=== PATIENT | male | born 1945 | race Caucasian/White ===

== ENCOUNTER 2024-11-21 11:22 | Inpatient (IN) | payer OTHER ==
[2024-11-21] VITALS (9 sets, daily range): BP systolic 135; BP diastolic 76; PULSE 72–140; RESP 16–20; TEMP 98.7; O2SAT 95–99
[~2024-11-21] VITALS: Ht 182.9 cm; Wt 60.6 kg
--- NOTE | 2024-11-21 11:31 | ED.PDOC ---
History of Present Illness HPI Comments 79-year-old male who comes in with chief complaint of constipation. The patient states that he has tried to have a bowel movement approximately 2-1/2 hours ago but then developed some constipation. The patient was also had no urine output. He is complaining of some pelvic pain. The patient states that he has not seen a doctor for several years. Upon arrival, the patient's blood pressure is 195/103. Time Seen by MD: 11:23 Reviewed Notes: Nurses Notes, Clinical Education Coordinator Notes, Medications, Allergies (No allergies to medications) Allergies: Coded Allergies: NO KNOWN ALLERGIES (Unverified , 11/21/24) Information Source: Patient, Emergency Med Personnel Mode of Arrival: EMS Severity: Moderate Timing: Hours Duration: Since onset Prehospital treatment: Rn Imcu Associated signs and symptoms Associated constipation with a pelvic pain Past Medical History PAST MEDICAL HISTORY: AFIB (Possible AFib), HTN Surgical History (Other): Cervical surgery Family History Family History: No family hx of Cancer, No family hx of DM, No family hx of Heart cameron Social History Smoker: Cigarettes Alcohol: Denies ETOH Use Drugs: Denies Drug Use Lives In: Home Constitutional: denies: chills, diaphoresis, fatigue, fever, malaise, sweats, weakness, others EENTM: denies: blurred vision, double vision, ear bleeding, ear discharge, ear drainage, ear pain, ear ringing, eye pain, eye redness, hearing loss, mouth pain, mouth swelling, nasal discharge, nose bleeding, nose congestion, nose pain, photophobia, tearing, throat pain, throat swelling, voice changes, others Respiratory: denies: cough, hemoptysis, orthopnea, SOB at rest, shortness of breath, SOB with excertion, stridor, wheezing, others Cardiovascular: denies: chest pain, dizzy spells, diaphoresis, Dyspnea on exertion, edema, irregular heart beat, left arm pain, lightheadedness, palpitations, PND, syncope, others Gastrointestinal: reports: constipated; denies: abdomen distended, abdominal pain, blood streaked bowels, diarrhea, dysphagia, difficulty swallowing, hematemesis, melena, nausea, poor appetite, poor fluid intake, rectal bleeding, rectal pain, vomiting, others Genitourinary: reports: others (Pelvic pain); denies: burning, dysuria, flank pain, frequency, hematuria, incontinence, penile discharge, penile sore, pain, testicle pain, testicle swelling, urgency Neurological: denies: dizziness, fainting, headache, left sided numbness, left sided weakness, numbness, paresthesia, pre-existing deficit, right sided numbness, right sided weakness, seizure, speech problems, tingling, tremors, weakness, others Musculoskeletal: denies: back pain, gout, joint pain, joint swelling, muscle pain, muscle stiffness, neck pain, others Integumetry: denies: bruises, change in color, change in hair/nails, dryness, laceration, lesions, lumps, rash, wounds, others Allergic/Immunocompromised: denies: Difficulty Healing, Frequent Infections, Hives, Itching, others Hematologic/Lymphatic: denies: anemia, blood clots, easy bleeding, easy bruising, swollen glands, others Endocrine: denies: excessive hunger, excessive sweating, excessive thirst, excessive urination, flushing, intolerance to cold, intolerance to heat, unexplained weight gain, unexplained weight loss, others Psychiatric: denies: anxiety, bipolar disorder, depression, hopeless, panic disorder, schizophrenia, sleepless, suicidal, others Physical Exam General Appearance: Moderate Distress HEENT: Pale Conjuntivae (L), Pale Conjuntivae (R), Pharynx Normal, TMs Normal Neck: Full Range of Motion, Non-Tender, Normal, Normal Inspection Respiratory: Chest Non-Tender, Lungs Clear, No Accessory Muscle Use, No Respiratory Distress, Normal Breath Sounds Cardiovascular: Irregular, No Edema, No JVD, No Murmur, No Gallop, Tachycardia Breast Exam: Deferred Gastrointestinal: Diffuse, No Organomegaly, Normal Bowel Sounds, Soft, Tenderness Genitalia: Deferred Pelvic: Deferred Rectal: Deferred Extremities: No calf tenderness, Normal capillary refill, Normal inspection, Normal range of motion, Non-tender, No pedal edema Musculoskeletal : Apperance: Normal Neurologic: Alert, operations support coordinator II-XII nml as Tested, No Motor Deficits, Normal Affect, Normal Mood, No Sensory Deficits Cerebellar Function: Normal Reflexes: Normal Skin: Dry, Normal Color, Warm Lymphatic: No Adenopathy Was a procedure done? Was a procedure done?: No EKG EKG : Pulse Rate (adult): 142 [place]: Normal Cardiac Rhythm: Afib Block: None ST: Nonsp Differential Dx Considerations may include: Constipation, bowel obstruction, diverticulitis generalized weakness X-Ray, Labs, Meds, VS Vital Signs Date Time Temp Pulse Resp B/P (MAP) Pulse Ox O2 Delivery O2 Flow Rate FiO2 11/21/24 14:00 92 16 93/40 (57) 99 11/21/24 13:54 83 16 98 Room Air* 0 21 11/21/24 13:00 98.4 89 16 133/86 (102) 99 98.4 11/21/24 12:39 89 11/21/24 12:34 158/98 11/21/24 12:22 140 16 95 Room Air* 0 21 11/21/24 12:21 98.1 140 16 195/103 (133) 94 98.1 11/21/24 11:51 142 11/21/24 11:49 142 11/21/24 11:28 97.3 130 16 195/103 (133) 94 Lab Test 11/21/24 11:53 Range/Units White Blood Count 16.4 H 4.4-10.8 10^3/uL Red Blood Count 5.56 4.5-5.90 10^6/uL Hemoglobin 17.2 13.5-17.5 g/dL Hematocrit 51.2 41.0-53.0 % Mean Corpuscular Volume 92.1 80.0-100.0 fL Mean Corpuscular Hemoglobin 30.9 28.0-32.0 pg Mean Corpuscular Hemoglobin Concent 33.6 32.0-36.0 g/dL Red Cell Distribution Width 14.1 11.8-14.3 % Platelet Count 199 140-450 10^3/uL Mean Platelet Volume 9.7 6.9-10.8 fL Neutrophils (%) (Auto) 92.5 H 37.0-80.0 % Lymphocytes (%) (Auto) 5.1 L 10.0-50.0 % Monocytes (%) (Auto) 2.0 0.0-12.0 % Eosinophils (%) (Auto) 0.2 0.0-7.0 % Basophils (%) (Auto) 0.2 0.0-2.0 % Neutrophils # (Auto) 15.1 H 1.6-8.6 10 ^3/uL Lymphocytes # (Auto) 0.8 0.4-5.4 10 ^3/uL Monocytes # (Auto) 0.3 0-1.3 10 ^3/uL Eosinophils # (Auto) 0 0-0.8 10 ^3/uL Basophils # (Auto) 0 0-0.2 10 ^3/uL Nucleated Red Blood Cells 0.2 % Sodium Level 141 136-145 mmol/L Potassium Level 4.5 3.5-5.1 mmol/L Chloride Level 106 98-107 mmol/L Carbon Dioxide Level 27 20-31 mmol/L Anion Gap 8 5-15 Blood Urea Nitrogen 25 H 9-23 mg/dL Creatinine 1.19 0.700-1.30 mg/dL Glomerular Filtration Rate Calc 62 >90 mL/min BUN/Creatinine Ratio 21.0 H 10.0-20.0 Serum Glucose 127 H 74-106 mg/dL Calcium Level 11.3 H 8.7-10.4 mg/dL Total Bilirubin 0.8 0.2-1.0 mg/dL Aspartate Amino Transferase (AST) 19 13-40 U/L Alanine Aminotransferase (ALT) 12 7-40 U/L Alkaline Phosphatase 92 46-116 U/L Total Protein 8.0 5.7-8.2 g/dL Albumin 5.1 H 3.2-4.8 g/dL Current Medications Medications (Trade) Dose Ordered Sig/Vanessa Route Start Time Stop Time Status Last Admin Clonidine HCl (Catapres Tablet) 0.2 mg ONCE ONCE PO 11/21/24 11:30 11/21/24 11:31 DC 11/21/24 12:34 Diltiazem HCl (Cardizem Injection) 15 mg ONCE ONCE IV 11/21/24 12:15 11/21/24 12:16 DC 11/21/24 12:34 IV Hep-Lock was established CT of the abdomen and pelvis shows: IMPRESSION: 1. No acute abdominal or pelvic findings. Mild irregular contour of the medial pole of the spleen, a mass is not entirely excluded. This could be further evaluated with MRI of the abdomen with contrast. Bilateral renal calculi and renal cysts. No hydronephrosis. Large amount of stool in the rectum suggesting fecal impaction. This is the CBC shows an elevated white blood cell count of 16.4 The patient was showing atrial fibrillation with a rapid response in the 140 so was given diltiazem at 15 mg IV push The patient was also extremely hypertensive and was given clonidine The patient's blood pressure has now dropped somewhat to 93/40. We are supporting it with fluid The patient was admitted to the hospitalist A cardiology consult will be obtained. The patient understands and agrees with the management Images Reviewed?: Images reviewed and evaluated by me Time of 1ST Reevaluation: 11:36 Reevaluation 1ST: Improved Patient Education/Counseling: Diagnosis, Treatment, Prognosis Family Education/Counseling: No Family Present Departure 1 Departure Time of Disposition: 16:17 Impression: Primary Impression: Atrial fibrillation with rapid ventricular response Additional Impressions: Fecal impaction Abdominal pain Qualified Codes: R10.84 - Generalized abdominal pain Disposition: 09 ADMITTED INPATIENT Admit to: Tele Condition: Fair Critical Care Note Critical Care Time?: Yes (35 min-critical care time only) Stability Stability form required: Yes Unstable for transfer: Telemetry monitoring (Telemetry monitoring required), ED Physician Assesment (Clinical assesment) Heart Score Heart Score: Heart Score Response (Comments) Value History N/A 0 EKG N/A 0 Age N/A 0 Risk Factors N/A 0 Troponin N/A 0 Total 0 JENNIFER MAE MD Nov 21, 2024 11:31
--- NOTE | 2024-11-21 12:03 | DVH ---
Exam: CT CT AB PEL WO CON-NO ORAL OR IV History: pain Comparison Study: None Technique: Multidetector spiral CT of the abdomen and pelvis was performed from lung bases to pubic symphysis. Imaging was performed without IV contrast. Axial, coronal and sagittal multiplanar reform ats were obtained from the axial data set by the technologist. Radiation dose : Abdomen/Pelvis: CTDIvol 7.75 mGy, DLP 396.83 mGy*cm. Findings: Evaluation of solid organs is limited due to lack of intravenous contrast use. Lung Bases: No acute or significant lung base finding. Normal heart size. No pleural or pericardial effusion. Liver: The liver is normal in size. No focal lesions. Gallbladder and biliary Tree: Unremarkable Spleen: Mild irregular contour of the medial pole of the spleen. Pancreas: The pancreas is grossly normal in appearance. Adrenal Glands: Unremarkable Kidneys: Right renal calculi measuring up to 5 mm. Punctate left renal calculi. Bilateral renal cyst s. No hydronephrosis. Bladder: Grossly unremarkable for degree of distention. Bowel: The stomach is grossly normal in appearance. Small bowel and colon are normal in caliber and d istribution. The appendix is not visualized; however, no secondary findings of acute appendicitis robbie ntified. Large amount of stool in the rectum. Ascites: Absent Lymphadenopathy: No mesenteric, retroperitoneal or periportal lymphadenopathy. Abdominal wall and Mesentery: Unremarkable. Vasculature: Calcified atherosclerotic disease. Pelvic Organs: Unremarkable Musculoskeletal: Grade 1 anterolisthesis of L4 on L5. Multilevel degenerative disease. IMPRESSION: 1. No acute abdominal or pelvic findings. Mild irregular contour of the medial pole of the spleen, a mass is not entirely excluded. This could be further evaluated with MRI of the abdomen with contrast. Bilateral renal calculi and renal cysts. No hydronephrosis. Large amount of stool in the rectum sugg esting fecal impaction. Radiation optimization: All CT scans at this facility use at least one of these dose optimization felipe hniques: Automated exposure control mA and/or kV adjustment per patient size (includes targeted exams where dose is matched to clinical indication) or iterative reconstruction. HS:Y
[2024-11-21 12:10] LABS: Basophils # (auto) 0 10 ^3/uL (0-0.2); Basophils % (auto) 0.2 % (0.0-2.0); Eosinophils # (auto) 0 10 ^3/uL (0-0.8); Eosinophils % (auto) 0.2 % (0.0-7.0); Hematocrit 51.2 % (41.0-53.0); Hemoglobin 17.2 g/dL (13.5-17.5); Lymphocytes # (auto) 0.8 10 ^3/uL (0.4-5.4); Lymphocytes % (auto) 5.1 % (10.0-50.0); Mean Corpuscular Hemoglobin 30.9 pg (28.0-32.0); Mean Corpuscular Hgb Conc. 33.6 g/dL (32.0-36.0); Mean Corpuscular Volume 92.1 fL (80.0-100.0); Monocytes # (auto) 0.3 10 ^3/uL (0-1.3); Neutrophils # (auto) 15.1 10 ^3/uL (1.6-8.6); Neutrophils % (auto) 92.5 % (37.0-80.0); Nucleated Red Blood Cells % 0.2 %; Platelet Count (auto) 199 10^3/uL (140-450); Red Blood Cells 5.56 10^6/uL (4.5-5.90); Red Cell Distribution Width 14.1 % (11.8-14.3); White Blood Cell 16.4 10^3/uL (4.4-10.8)
[2024-11-21] MEDS: dilTIAZem 25 MG/5 ML VIAL IV ONE (12:34)
[2024-11-21] MEDS: cloNIDine HCL 0.1 MG TAB PO ONE (12:34)
[2024-11-21 12:36] LABS: Alanine Aminotransferase 12 U/L (7-40); Albumin 5.1 g/dL (3.2-4.8); Alkaline Phosphatase 92 U/L (46-116); Anion Gap 8 (5-15); Aspartate Aminotransferase 19 U/L (13-40); Bilirubin, Total 0.8 mg/dL (0.2-1.0); Blood Urea Nitrogen 25 mg/dL (9-23); Calcium 11.3 mg/dL (8.7-10.4); Carbon Dioxide 27 mmol/L (20-31); Chloride 106 mmol/L (98-107); Glucose 127 mg/dL (74-106); Potassium 4.5 mmol/L (3.5-5.1); Sodium 141 mmol/L (136-145)
[2024-11-21] MEDS ORDERED: ACETAMINOPHEN 500 MG TAB or CAP PO PRN (15:45)
[2024-11-21] MEDS ORDERED: MORPHINE SULFATE INJ 2 MG/ml SYRG IV PRN ×2 (15:45)
[2024-11-21] MEDS ORDERED: NITROGLYCERIN 0.4 MG SL TAB SL PRN (15:45)
[2024-11-21] MEDS ORDERED: ONDANSETRON HCL 4 MG/2 ML VIAL IV PRN (15:45)
[2024-11-21] MEDS ORDERED: HYDROcodone-ACET 5/325MG TAB PO PRN (15:45)
[2024-11-21] MEDS ORDERED: IPRATROPIUM BROM 0.5 MG/2.5ML INH SOL NEB PRN (15:45)
[2024-11-21 15:59] LABS: Urine Bacteria None Seen /hpf (None Seen)
[2024-11-21 16:00] LABS: Urine Blood Negative /uL (Negative); Urine Clarity Clear (Clear); Urine Color Light-Yellow (Yellow); Urine Mucus FEW (None Seen); Urine Squamous Epithelial Cell FEW /hpf (<5); Urine Urobilinogen Normal (Negative); Urine WBC < 1 /HPF (0-3)
--- NOTE | 2024-11-21 16:07 | DVHHP2 ---
History of Present Illness Reason for Visit: Abdominal pain, constipation History of Present Illness Patient was a 79-year-old male presenting to the emergency room with constipation, be abdominal pain. Long discussion was made with the patient and daughter who was bedside. Apparently, the patient was not follow up with any t ype of medical provider which was estimated over six years. Patient has been losing weight. Upon arrival to the emergency room the patient was found to be in atrial fibrillation with rapid ventricular rate with a heart rate in the 150s. Patient was also severely hypertensive with a systolic blood pressure of 190. Patient was treated with clonidine as well as IV diltiazem with patient now in a controlled rate. Patient was not take any medications at this time. He denies having any other medical history other than hypertension. He denies having any previous surgeries. Social history includes smoking, one pack a day for over 50 years. Cardiovascular: HTN Past Surgical History: None Family History: None Smoke: 1 pack per day ALCOHOL: none Drugs: None Lives: with Family Review of Systems Constitutional: Yes: Other (Weight loss); No: Fever, Chills, Sweats, Weakness, Malaise Eyes: No: Pain, Vision change, Conjunctivae inflammation, Eyelid inflammation, Other, Redness ENT: No: Ear pain, Ear discharge, Nose pain, Nose discharge, Nose congestion, Mouth pain, Mouth swelling, Throat pain, Throat swelling, Other Respiratory: No: Cough, Dry, Shortness of breath, SOB with excertion, Wheezing, Hemoptysis, Pleuritic Pain, Sputum, Wheezing, Other Cardiovascular: No: Chest Pain, Palpitations, Orthopnea, Paroxysmal Noc. Dyspnea, Edema, Lt Headedness, Other Gastrointestinal: Abdominal Pain Genitourinary: No Dysuria, No Frequency, No Incontinence, No Hematuria, No Retention, No Other Musculoskeletal: No: other, neck pain, shoulder pain, arm pain, back pain, hand pain, leg pain, foot pain Skin: No: Rash, Lesions, Jaundice, Bruising, Other Neurological: No: Weakness, Numbness, Incoordination, Change in speech, Confusion, Seizures, Other Allergies: Coded Allergies: NO KNOWN ALLERGIES (Unverified , 11/21/24) Exam Vital Signs Vital Signs Date Time Temp Pulse Resp B/P (MAP) Pulse Ox O2 Delivery O2 Flow Rate FiO2 11/21/24 14:00 92 16 93/40 (57) 99 11/21/24 13:54 Room Air* 0 21 11/21/24 13:00 98.4 98.4 General Appearance: Alert, Oriented X3, Cooperative, Other (Generally unkept) HEENT: Atraumatic, PERRLA Respiratory: Clear to auscultation, Normal air movement Cardiovascular: Normal S1, Normal S2, Other (Atrial fibrillation/flutter) Abdominal: Normal bowel sounds, Soft, No tenderness, No hepatospenomegaly Neuro: Sensation intact, Cranial nerves 3-12 NL Psych/Mental Status: Mental status NL, Mood NL Labs/Xrays Labs Test 11/21/24 11:53 Range/Units White Blood Count 16.4 H 4.4-10.8 10^3/uL Red Blood Count 5.56 4.5-5.90 10^6/uL Hemoglobin 17.2 13.5-17.5 g/dL Hematocrit 51.2 41.0-53.0 % Mean Corpuscular Volume 92.1 80.0-100.0 fL Mean Corpuscular Hemoglobin 30.9 28.0-32.0 pg Mean Corpuscular Hemoglobin Concent 33.6 32.0-36.0 g/dL Red Cell Distribution Width 14.1 11.8-14.3 % Platelet Count 199 140-450 10^3/uL Mean Platelet Volume 9.7 6.9-10.8 fL Neutrophils (%) (Auto) 92.5 H 37.0-80.0 % Lymphocytes (%) (Auto) 5.1 L 10.0-50.0 % Monocytes (%) (Auto) 2.0 0.0-12.0 % Eosinophils (%) (Auto) 0.2 0.0-7.0 % Basophils (%) (Auto) 0.2 0.0-2.0 % Neutrophils # (Auto) 15.1 H 1.6-8.6 10 ^3/uL Lymphocytes # (Auto) 0.8 0.4-5.4 10 ^3/uL Monocytes # (Auto) 0.3 0-1.3 10 ^3/uL Eosinophils # (Auto) 0 0-0.8 10 ^3/uL Basophils # (Auto) 0 0-0.2 10 ^3/uL Nucleated Red Blood Cells 0.2 % Sodium Level 141 136-145 mmol/L Potassium Level 4.5 3.5-5.1 mmol/L Chloride Level 106 98-107 mmol/L Carbon Dioxide Level 27 20-31 mmol/L Anion Gap 8 5-15 Blood Urea Nitrogen 25 H 9-23 mg/dL Creatinine 1.19 0.700-1.30 mg/dL Glomerular Filtration Rate Calc 62 >90 mL/min BUN/Creatinine Ratio 21.0 H 10.0-20.0 Serum Glucose 127 H 74-106 mg/dL Calcium Level 11.3 H 8.7-10.4 mg/dL Total Bilirubin 0.8 0.2-1.0 mg/dL Aspartate Amino Transferase (AST) 19 13-40 U/L Alanine Aminotransferase (ALT) 12 7-40 U/L Alkaline Phosphatase 92 46-116 U/L Total Protein 8.0 5.7-8.2 g/dL Albumin 5.1 H 3.2-4.8 g/dL Assessment/Plan Assessment/Plan Impression: -obstipation -leukocytosis, rule out sepsis -atrial fibrillation with rapid ventricular rate -cachexia -nicotine dependence Plan: -admit to telemetry unit -echocardiogram -rate control with beta-blockers -bronchodilators. -chest x-ray -repeat labs in a.m. Total time spent with patient discussing and formulating plan of care: 35 minutes. This medical document was created using an electronic medical record system with [employer] dictation system. Although this document has been carefully reviewed, there may still be some phonetic and typographical errors. These areas are purely typographical due to imperfections of the software programs, and do not reflect any compromise in the patient's medical care. Plan discussed with: Patient, Daughter, Other (RN) My Orders Orders - FRANCIA BROWN RESIDENTIAL NURSE Procedure Category Date Status Time Admit ADMIT 11/21/24 Verified 15:40 Nitroglycerin [facility] 11/21/24 Verified Sublingual (Ntrostat 15:45 Morphine Sulfate PH[facility] 11/21/24 Verified Injection 15:45 Stat Ekg For Chest [facility] 11/21/24 Verified Pain 15:40 Notify Md Of Changes [facility] 11/21/24 Verified From Base 15:40 Information Resources Director For [facility] 11/21/24 Verified 24 Hours 15:40 Emergency Dysrhythmia [facility] 11/21/24 Verified Protocol 15:40 Rhythm Strips Once [facility] 11/21/24 Verified Every Shift 15:40 Oxygen By Nasal RT 11/21/24 Verified Cannula 15:40 Echo 2d Mode Cardiac US 11/21/24 Verified DOP 15:40 Lactulose Oral PHA 11/21/24 Verified 15:45 Docusate Sodium PHA 11/21/24 Verified Capsule (Colace 22:00 Metoprolol Tartrate PHA 11/21/24 Verified Tablet (Lopressor Ta 22:00 Enoxaparin Sodium PHA 11/22/24 Verified (Lovenox) 10:00 Chest Xray 1 View XY 11/21/24 Verified 15:40 Morphine Sulfate PHA 11/21/24 Verified Injection 15:45 Hydrocodone-Acet PHA 11/21/24 Verified 5/325mg Tab ([place] 15:45 Acetaminophen Tablet PHA 11/21/24 Verified (Tylenol Tablet) 15:45 Ondansetron Hcl PHA 11/21/24 Verified (Zofran) 15:45 Ipratropium Medneb PHA 11/21/24 Verified (Atrovent Medneb) 15:45 Levalbuterol Hcl PHA 11/21/24 Verified (Xopenex Medneb) 18:00 Lactulose Oral PHA 11/21/24 Verified 15:45 Cardiac DIET 11/21/24 Verified Diet-2gna,Lofat,Lochol Dinner Carcinoembryonic LAB 11/21/24 Verified Antigen 15:40 Date of Service: Nov 21, 2024 Billing Provider: FRANCIA BROWN NP Common Visit Codes: [id number] INP/OBS CARE (HIGH) FRANCIA BROWN NP Nov 21, 2024 16:06
--- NOTE | 2024-11-21 16:17 | DVH ---
CHEST RADIOGRAPH Indication: Hx of smoking, cardiac disease Technique: Single frontal view of the chest was obtained Comparison: None FINDINGS: Lines and Tubes: None Lungs: Left lateral mid lung zone emesis. Pleura: No effusion. No pneumothorax. Cardiomediastinal contours: Unremarkable Bones: No acute osseous abnormality. IMPRESSION: Left lateral mid lung zone atelectasis. Otherwise no evidence for acute cardiopulmonary disease.
[2024-11-21] MEDS: LACTULOSE 20Gm/30ML SOLN PO ONE (17:09)
[2024-11-21] MEDS: LEVALBUTEROL HCL 1.25 MG/3 ML NEB NEB SCH (18:06)
[2024-11-21] MEDS ORDERED: LEVALBUTEROL HCL 1.25 MG/3 ML NEB NEB PRN (22:15)
[2024-11-21] MEDS: METOPROLOL TARTRATE 25 MG TAB PO SCH (23:25)
[2024-11-21] MEDS: DOCUSATE SOD 100 MG CAP PO SCH (23:25)
[2024-11-22] VITALS (12 sets, daily range): BP systolic 102–131; BP diastolic 66–80; PULSE 71–115; RESP 16–20; TEMP 97.6–98.8; O2SAT 96–99
[2024-11-22] MEDS: LACTULOSE 20Gm/30ML SOLN PO PRN (02:50)
[2024-11-22] MEDS: ENOXAPARIN SOD 40 MG/0.4 ML SYRINGE SC SCH (09:09)
--- NOTE | 2024-11-22 14:06 | DVHPN2 ---
Reviewed: Care Plan, H&P, Labs, Medications, Previous Orders, Radiology Changes from previous H/P or p: No Changes Eyes: No Pain, No Vision change, No Conjunctivae inflammation, No Eyelid inflammation, No Other, No Redness ENT: No Ear pain, No Ear discharge, No Nose pain, No Nose discharge, No Nose congestion, No Mouth pain, No Mouth swelling, No Throat pain, No Throat swelling, No Other Cardiovascular: No Chest Pain, No Palpitations, No Orthopnea, No Paroxysmal Noc. Dyspnea, No Edema, No Lt Headedness, No Other Respiratory: No Cough, No Dry, No Shortness of breath, No SOB with excertion, No Wheezing, No Hemoptysis, No Pleuritic Pain, No Sputum, No Other Gastrointestinal: Abdominal Pain Genitourinary: No Dysuria, No Frequency, No Incontinence, No Hematuria, No Retention, No Other Musculoskeletal: No other, No neck pain, No shoulder pain, No arm pain, No back pain, No hand pain, No leg pain, No foot pain Skin: No Rash, No Lesions, No Jaundice, No Bruising, No Other Objective Vitals Vital Signs Date Time Temp Pulse Resp B/P (MAP) Pulse Ox O2 Delivery O2 Flow Rate FiO2 11/22/24 12:47 98.1 79 16 114/68 (83) 97 98.1 11/22/24 10:00 Room Air 0.0 11/22/24 10:00 21 Intake/Output Intake and Output 11/22/24 07:00 Intake Total 250 ml Output Total 500 ml Balance -250 ml Intake Oral 250 ml Output Urine Total 500 ml # Bowel Movements 1 Medications Current Medications Medications Dose Ordered Sig/Vanessa Route Start Time Stop Time Status Last Admin Dose Admin Nitroglycerin 0.4 mg Q5MINP PRN SL 11/21/24 15:45 Morphine Sulfate 2 mg Q30M PRN IV 11/21/24 15:45 Docusate Sodium 100 mg BID PO 11/21/24 22:00 11/22/24 09:08 100 MG Metoprolol Tartrate 12.5 mg BID PO 11/21/24 22:00 11/22/24 09:09 12.5 MG Enoxaparin Sodium 40 mg DAILY SC 11/22/24 10:00 11/22/24 09:09 40 MG Morphine Sulfate 1 mg Q4HPRN PRN IV 11/21/24 15:45 Acetaminophen/ Hydrocodone Bitart 1 tab Q6HPRN PRN PO 11/21/24 15:45 Acetaminophen 500 mg Q8HP PRN PO 11/21/24 15:45 Ondansetron HCl 4 mg Q6HP PRN IV 11/21/24 15:45 Ipratropium [place] 0.5 mg Q4HPRN PRN NEB 11/21/24 15:45 Lactulose 30 ml Q6HPRN PRN PO 11/21/24 15:45 11/22/24 10:41 30 ML Levalbuterol HCl 0.625 mg Q4HPRN PRN NEB 11/21/24 22:15 Laboratory Results Laboratory Tests 11/21/24 11:53 Urinalysis Test 11/21/24 15:45 Urine Color Light-yellow (Yellow) Urine Clarity Clear (Clear) Urine pH 5.0 (5.0-9.0) Urine Specific [place] 1.030 (1.001-1.035) Urine Protein +1 (Negative) Urine Ketones +1 (Negative) Urine Blood Negative /uL (Negative) Urine Nitrite Negative (Negative) Urine Bilirubin Negative (Negative) Urine Urobilinogen Normal mg/dL (Negative) Urine Leukocyte Esterase Negative /uL (Negative) Urine RBC 7 /hpf (0 - 3) Urine Microscopic WBC < 1 /HPF (0-3) Urine Squamous Epithelial Cells Few /hpf (<5) Urine Bacteria None seen /hpf (None Seen) Urine Mucus Few (None Seen) Urine Glucose Normal mg/dL (Normal) Assessment/Plan Assessment/Plan -obstipation -leukocytosis, rule out sepsis -atrial fibrillation with rapid ventricular rate -cachexia -nicotine dependence Plan: -continuing current management Continuing with beta madie Waiting for asphalt tamper to see the patient. Waiting for echo Continuing metoprolol, lisinopril and spironolactone. Continuing with lactulose This medical document was created using an electronic medical record system with [employer] direct computerized dictation system. Although this document has been carefully reviewed, there may still be some phonetic and typographical errors. These areas are purely typographical due to imperfections of the software programs, and do not reflect any compromise in the patient's medical care. Plan discussed with: Patient Date of Service: Nov 22, 2024 Billing Provider: KLEBER HILL MD Common Visit Codes: [id number] INP/OBS CARE(HIGH) KLEBER HILL MD Nov 22, 2024 14:06
--- NOTE | 2024-11-22 16:26 | DVHSR ---
APPROVED REPORT EXAM: Two-dimensional and M-mode echocardiogram with Doppler and color Doppler. Blood Pressure: 120/72 mmHg INDICATION Atrial Fibrillation RISK FACTORS Height: 6'0", Weight: 133 DIMENSIONS LVDd4.4 (3.8-5.7cm)LA (2D)3.4 (1.9-4.0cm)Aortic Root3.0 (2.0-3.7cm) LVDs3.5 (2.5-4.0cm)LA (MM) (1.9-4.0cm)Aortic Cusp Exc1.7 (1.5-2.0cm) EF (%) 40.0 (55-70%)Rt. Atrium (1.9-4.0cm)Asc. Aorta cm IVSd1.1 (0.7-1.1cm)RV (D) (1.8-2.4cm) PWd1.0 (0.7-1.1cm) Mitral Valve MitralMitral Stenosis E wave1.06m/sMV Mean GR.mmHg E/A ratio0.02D MVAcm2 Aortic Valve Aortic ValveAortic Stenosis V10.59m/Richar Mean GR.2mmHg V21.04m/[place] Peak GR.4mmHg LVOT Diameter1.9 (1.8-2.4cm)Doppler AVA1.61cm2 Tricuspid Valve TR Velocity2.51m/s [id number] Other Information Quality : Technically LimitedRhythm : Technically limited study due to body habitus, patient sitting up. Conclusion Technically good study. Undetermined rhythm. Left atrial enlargement. Moderate mitral annular calcification. No significant impingement of leaflet motion. Left ventricular function is diminished. EF is about 40% with global hypokinesis. Dopplers unremarkable. No pericardial effusion masses or vegetations.
--- NOTE | 2024-11-22 18:20 | ECG ---
[facility] Test Date: 2024-11-21 Test Time: 12:39:09 Pat Name: GARY LOPEZ Department: er Room: 0286T Gender: M Igniter Assembler: MARIE : 1945 Requested By: JENNIFER MAE Order Number: [id number] Reading MD: Nick De Leon Measurements Intervals [place] Rate: 89 P: 0 [place]: 0 QRS: 103 QRSD: 111 T: 16 QT: 362 QTc: 441 Interpretive Statements Atrial fibrillation Right axis deviation Electronically Signed On 11-23-2024 18:43:58 PST by Nick De Leon Please click the below link to view image of tracing.
[2024-11-23] VITALS (11 sets, daily range): BP systolic 99–151; BP diastolic 59–93; PULSE 67–134; RESP 18–20; TEMP 97.8–99; O2SAT 91–99
--- NOTE | 2024-11-23 22:29 | DVHPN2 ---
Subjective The patient is seen and examined at bedside. Sleepy today. Still complaint of constipation. Reviewed: Care Plan, H&P, Labs, Medications, Previous Orders, Radiology Changes from previous H/P or p: No Changes Eyes: No Pain, No Vision change, No Conjunctivae inflammation, No Eyelid inflammation, No Other, No Redness ENT: No Ear pain, No Ear discharge, No Nose pain, No Nose discharge, No Nose congestion, No Mouth pain, No Mouth swelling, No Throat pain, No Throat swelling, No Other Cardiovascular: No Chest Pain, No Palpitations, No Orthopnea, No Paroxysmal Noc. Dyspnea, No Edema, No Lt Headedness, No Other Respiratory: No Cough, No Dry, No Shortness of breath, No SOB with excertion, No Wheezing, No Hemoptysis, No Pleuritic Pain, No Sputum, No Other Gastrointestinal: Abdominal Pain Genitourinary: No Dysuria, No Frequency, No Incontinence, No Hematuria, No Retention, No Other Musculoskeletal: No other, No neck pain, No shoulder pain, No arm pain, No back pain, No hand pain, No leg pain, No foot pain Skin: No Rash, No Lesions, No Jaundice, No Bruising, No Other Objective Vitals Vital Signs Date Time Temp Pulse Resp B/P (MAP) Pulse Ox O2 Delivery O2 Flow Rate FiO2 11/23/24 21:17 97.8 93 18 99/59 (72) 96 97.8 11/23/24 20:03 Room Air 0.0 11/23/24 20:03 21 Intake/Output Intake and Output 11/23/24 07:00 Intake Total 990 ml Output Total 410 ml Balance 580 ml Intake Oral 990 ml Output Urine Total 410 ml # Bowel Movements 3 General Appearance: Alert, Cooperative, No acute distress HEENT: Atraumatic, PERRLA, EOMI, Mucous membr. moist/pink Neck: Supple Lungs: Clear to auscultation, Normal air movement Cardiovascular: Regular rate, Normal S1, Normal S2, No murmurs, Gallops, Rubs Abdomen: Normal bowel sounds, Soft, No tenderness Neuro: Cranial nerves 3-12 NL Psych/Mental Status: Mental status NL Medications Current Medications Medications Dose Ordered Sig/Vanessa Route Start Time Stop Time Status Last Admin Dose Admin Nitroglycerin 0.4 mg Q5MINP PRN SL 11/21/24 15:45 Morphine Sulfate 2 mg Q30M PRN IV 11/21/24 15:45 Docusate Sodium 100 mg BID PO 11/21/24 22:00 11/23/24 10:06 100 MG Metoprolol Tartrate 12.5 mg BID PO 11/21/24 22:00 11/23/24 15:36 12.5 MG Enoxaparin Sodium 40 mg DAILY SC 11/22/24 10:00 11/23/24 10:07 40 MG Morphine Sulfate 1 mg Q4HPRN PRN IV 11/21/24 15:45 Acetaminophen/ Hydrocodone Bitart 1 tab Q6HPRN PRN PO 11/21/24 15:45 Acetaminophen 500 mg Q8HP PRN PO 11/21/24 15:45 Ondansetron HCl 4 mg Q6HP PRN IV 11/21/24 15:[address] [place] 0.5 mg Q4HPRN PRN NEB 11/21/24 15:45 Lactulose 30 ml Q6HPRN PRN PO 11/21/24 15:45 11/22/24 10:41 30 ML Levalbuterol HCl 0.625 mg Q4HPRN PRN NEB 11/21/24 22:15 Laboratory Results Laboratory Tests 11/21/24 11:53 Urinalysis Test 11/21/24 15:45 Urine Color Light-yellow (Yellow) Urine Clarity Clear (Clear) Urine pH 5.0 (5.0-9.0) Urine Specific [place] 1.030 (1.001-1.035) Urine Protein +1 (Negative) Urine Ketones +1 (Negative) Urine Blood Negative /uL (Negative) Urine Nitrite Negative (Negative) Urine Bilirubin Negative (Negative) Urine Urobilinogen Normal mg/dL (Negative) Urine Leukocyte Esterase Negative /uL (Negative) Urine RBC 7 /hpf (0 - 3) Urine Microscopic WBC < 1 /HPF (0-3) Urine Squamous Epithelial Cells Few /hpf (<5) Urine Bacteria None seen /hpf (None Seen) Urine Mucus Few (None Seen) Urine Glucose Normal mg/dL (Normal) Labs and/or images reviewed: Labs reviewed by me Assessment/Plan Assessment/Plan -obstipation -leukocytosis, rule out sepsis -atrial fibrillation with rapid ventricular rate -cachexia -nicotine dependence Plan: -continuing current management Continuing with beta madie Waiting for application support intern to see the patient. Waiting for echo Continuing metoprolol, lisinopril and spironolactone. Continuing with lactulose. Encouraged the patient to decrease pain medication and increase fiber food for prevent constipation and obstipation. This medical document was created using an electronic medical record system with [employer] computerized dictation system. Although this document has been carefully reviewed, there may still be some phonetic and typographical errors. These areas are purely typographical due to imperfections of the software programs, and do not reflect any compromise in the patient's medical care. Plan discussed with: Patient Date of Service: Nov 23, 2024 Billing Provider: KLEBER HILL MD Common Visit Codes: [id number] INP/OBS CARE(HIGH) KLEBER HILL MD Nov 23, 2024 22:29
[2024-11-24] VITALS (12 sets, daily range): BP systolic 95–134; BP diastolic 35–76; PULSE 62–103; RESP 16–18; TEMP 97.5–98.5; O2SAT 96–99
--- NOTE | 2024-11-24 14:35 | DVHPN2 ---
Subjective Patient denies any symptoms at this time. Reviewed: Care Plan, H&P, Labs, Medications Changes from previous H/P or p: No Changes Eyes: No Pain, No Vision change, No Conjunctivae inflammation, No Eyelid inflammation, No Other, No Redness ENT: No Ear pain, No Ear discharge, No Nose pain, No Nose discharge, No Nose congestion, No Mouth pain, No Mouth swelling, No Throat pain, No Throat swelling, No Other Cardiovascular: No Chest Pain, No Palpitations, No Orthopnea, No Paroxysmal Noc. Dyspnea, No Edema, No Lt Headedness, No Other Respiratory: No Cough, No Dry, No Shortness of breath, No SOB with excertion, No Wheezing, No Hemoptysis, No Pleuritic Pain, No Sputum, No Other Gastrointestinal: Abdominal Pain Genitourinary: No Dysuria, No Frequency, No Incontinence, No Hematuria, No Retention, No Other Musculoskeletal: No other, No neck pain, No shoulder pain, No arm pain, No back pain, No hand pain, No leg pain, No foot pain Skin: No Rash, No Lesions, No Jaundice, No Bruising, No Other Objective Vitals Vital Signs Date Time Temp Pulse Resp B/P (MAP) Pulse Ox O2 Delivery O2 Flow Rate FiO2 11/24/24 10:32 62 18 134/76 99 0.0 11/24/24 09:00 98.5 98.5 11/24/24 08:15 Room Air* 21 Intake/Output Intake and Output 11/24/24 07:00 Intake Total 1590 ml Output Total 2050 ml Balance -460 ml Intake Oral 1590 ml Output Urine Total 2050 ml # Bowel Movements 2 General Appearance: Alert, Oriented X3, Cooperative, No acute distress HEENT: Atraumatic, PERRLA Lungs: Clear to auscultation, Normal air movement Cardiovascular: Normal S1, Normal S2, Other (Atrial fibrillation) Abdomen: Normal bowel sounds, Soft, No tenderness, No hepatospenomegaly Back: Midline Tenderness Musculoskeletal: Normal sensory function, Normal motor function Extremities: No clubbing, No cyanosis Neuro: Normal gait, Normal speech Skin: Dry, Intact Psych/Mental Status: Mental status NL, Mood NL Medications Current Medications Medications Dose Ordered Sig/Vanessa Route Start Time Stop Time Status Last Admin Dose Admin Nitroglycerin 0.4 mg Q5MINP PRN SL 11/21/24 15:45 Morphine Sulfate 2 mg Q30M PRN IV 11/21/24 15:45 Docusate Sodium 100 mg BID PO 11/21/24 22:00 11/24/24 10:00 100 MG Metoprolol Tartrate 12.5 mg BID PO 11/21/24 22:00 11/24/24 10:03 12.5 MG Enoxaparin Sodium 40 mg DAILY SC 11/22/24 10:00 11/24/24 10:01 40 MG Morphine Sulfate 1 mg Q4HPRN PRN IV 11/21/24 15:45 Acetaminophen/ Hydrocodone Bitart 1 tab Q6HPRN PRN PO 11/21/24 15:45 Acetaminophen 500 mg Q8HP PRN PO 11/21/24 15:45 Ondansetron HCl 4 mg Q6HP PRN IV 11/21/24 15:45 Ipratropium [place] 0.5 mg Q4HPRN PRN NEB 11/21/24 15:45 Lactulose 30 ml Q6HPRN PRN PO 11/21/24 15:45 11/22/24 10:41 30 ML Levalbuterol HCl 0.625 mg Q4HPRN PRN NEB 11/21/24 22:15 Laboratory Results Laboratory Tests 11/21/24 11:53 Urinalysis Test 11/21/24 15:45 Urine Color Light-yellow (Yellow) Urine Clarity Clear (Clear) Urine pH 5.0 (5.0-9.0) Urine Specific [place] 1.030 (1.001-1.035) Urine Protein +1 (Negative) Urine Ketones +1 (Negative) Urine Blood Negative /uL (Negative) Urine Nitrite Negative (Negative) Urine Bilirubin Negative (Negative) Urine Urobilinogen Normal mg/dL (Negative) Urine Leukocyte Esterase Negative /uL (Negative) Urine RBC 7 /hpf (0 - 3) Urine Microscopic WBC < 1 /HPF (0-3) Urine Squamous Epithelial Cells Few /hpf (<5) Urine Bacteria None seen /hpf (None Seen) Urine Mucus Few (None Seen) Urine Glucose Normal mg/dL (Normal) Labs and/or images reviewed: Labs reviewed by me, Image(s) reviewed by me Assessment/Plan Assessment/Plan Impression: -obstipation -leukocytosis, rule out sepsis -atrial fibrillation with rapid ventricular rate -cachexia -nicotine dependence Plan: -no events overnight. AFib now controlled. Hematuria noted -renal ultrasound, check PSA -echocardiogram: EF depressive 40% -cardiology consultation -rate control with beta-blockers -bronchodilators. -chest x-ray -repeat labs Total time spent with patient discussing and formulating plan of care: 35 minutes. This medical document was created using an electronic medical record system with [email or web address] dictation system. Although this document has been carefully reviewed, there may still be some phonetic and typographical errors. These areas are purely typographical due to imperfections of the software programs, and do not reflect any compromise in the patient's medical care. Plan discussed with: Patient, Other (RN) My Orders Orders - FRANCIA BROWN NP Procedure Category Date Status Time *Tele Psych Consult CONS 11/24/24 Transmitted 13:28 Comprehensive LAB 11/24/24 Logged Metabolic Panel 13:28 * Cardiology Consult CONS 11/24/24 Transmitted 13:47 * Wound Consult CONS 11/24/24 Verified Kidney US 11/24/24 Verified 14:30 Complete Blood Count LAB 11/24/24 Verified 14:30 Psa Total+% Free LAB 11/24/24 Verified 14:30 Erythrocyte LAB 11/24/24 Verified Sedimentation Rate 14:30 C-Reactive Protein LAB 11/24/24 Verified 14:30 Date of Service: Nov 24, 2024 Billing Provider: FRANCIA BROWN NP Common Visit Codes: [id number] INP/OBS CARE(HIGH) FRANCIA BROWN NP Nov 24, 2024 14:35
--- NOTE | 2024-11-24 15:12 | DVH ---
INDICATION: hematuria TECHNIQUE: Multiple real-time sonographic images of the kidneys and bladder were obtained. COMPARISON: None FINDINGS: The right kidney measures 10.2 cm in length, which is normal in size. There is normal echog enicity of the right kidney. No hydronephrosis. 2.8 x 2.9 x 2.6 cm anechoic lesion right kidney. Most likely cortical cysts The left kidney measures 11 cm in length, which is normal in size. There is normal echogenicity of th e left kidney. No hydronephrosis. Bladder contains a Wheeler catheter in the bladder is emptying. IMPRESSION: 1. Normal sonographic appearance of the kidneys. No hydronephrosis. 2. Left kidney not well seen due to bowel gas. 3. Right kidney measures 10.2 cm. Left kidney measures 11 cm. 4. 2.8 x 2.9 x 2.6 cm right renal cyst 5. Questionable nonobstructing calculi left kidney.
[2024-11-24 15:36] LABS: Basophils # (auto) 0.1 10 ^3/uL (0-0.2); Basophils % (auto) 0.4 % (0.0-2.0); Eosinophils # (auto) 0.4 10 ^3/uL (0-0.8); Eosinophils % (auto) 3.3 % (0.0-7.0); Hematocrit 46.1 % (41.0-53.0); Hemoglobin 15.6 g/dL (13.5-17.5); Lymphocytes # (auto) 1.4 10 ^3/uL (0.4-5.4); Lymphocytes % (auto) 10.4 % (10.0-50.0); Mean Corpuscular Hemoglobin 31.1 pg (28.0-32.0); Mean Corpuscular Hgb Conc. 33.9 g/dL (32.0-36.0); Mean Corpuscular Volume 91.9 fL (80.0-100.0); Monocytes # (auto) 1.1 10 ^3/uL (0-1.3); Monocytes % (auto) 7.9 % (0.0-12.0); Neutrophils # (auto) 10.4 10 ^3/uL (1.6-8.6); Nucleated Red Blood Cells % 0.1 %; Platelet Count (auto) 168 10^3/uL (140-450); Red Blood Cells 5.02 10^6/uL (4.5-5.90); Red Cell Distribution Width 14.2 % (11.8-14.3); White Blood Cell 13.3 10^3/uL (4.4-10.8)
[2024-11-24 15:49] LABS: Alanine Aminotransferase 11 U/L (7-40); Alkaline Phosphatase 77 U/L (46-116); Anion Gap 7 (5-15); Aspartate Aminotransferase 13 U/L (13-40); BUN/Creatinine Ratio 20.2 (10.0-20.0); Blood Urea Nitrogen 18 mg/dL (9-23); Calcium 10.5 mg/dL (8.7-10.4); Carbon Dioxide 29 mmol/L (20-31); Chloride 101 mmol/L (98-107); Glucose 105 mg/dL (74-106); Potassium 4.4 mmol/L (3.5-5.1); Sodium 137 mmol/L (136-145); Total Protein 6.8 g/dL (5.7-8.2)
[2024-11-24 15:50] LABS: Albumin 4.3 g/dL (3.2-4.8)
--- NOTE | 2024-11-24 16:26 | DVHINCON2 ---
[facility] JO[facility]PH [facility] 11/24/24 1626: Date Seen: Nov 24, 2024 Referring Physician MARIE Wilkerson Reason for Consultation New onset atrial fibrillation, systolic HF History of Present Illness This is a 79-year-old man who presented to the emergency room via EMS with a chief complaint of constipation. The patient initial complaint was constipation associated with anuria. He also endorses intermittent episodes of SOB, ZHENG, and dizziness for the past two years. Denies chest pain, palpitations, diaphoresis, or syncopal events. SBP upon arrival was found in the 190s mmHg. States he takes three unknown pills on daily basis at home and stopping one of them given side effects. He last saw a PCP >3 years ago. He underwent a 12 lead electrocardiogram revealing an atrial fibrillation rhythm in the 140s bpm. Now at a controlled rate. Significant medical history includes hypertension, hypoglycemia, and a smoking history of 30.5 pack-years. Past Medical History Past medical history reviewed. No other significant than mentioned above. Past Surgical History Denies any past surgical history. Family History: Depression G8 MOTHER FH: heart attack G8 MOTHER Family History Family history reviewed. Not significant for cardiovascular disease. Social History Denies the use of illicit drugs or alcohol. Current tobacco use including a smoking history of 30.5 pack-years. Allergies: Coded Allergies: NO KNOWN ALLERGIES (Unverified , 11/21/24) Home Meds Unknown home medications. Review of Systems Constitutional: No symptom reported Ears, Nose, & Throat: No symptom reported Eyes: No symptom reported Neurological: No symptoms reported Pulmonary/Respiratory: No symptom reported Cardiovascular: No symptom reported Gastrointestinal: Constipation Genitourinary: Anuria Musculoskeletal: No symptom reported Skin: No symptom reported Psychiatric: No symptom reported Endocrine: No symptom reported Hemotologic/Lymphatic: No symptom reported Vital Signs Vital Signs Date Time Temp Pulse Resp B/P (MAP) Pulse Ox O2 Delivery O2 Flow Rate FiO2 11/24/24 13:00 98.1 68 16 111/61 (78) 96 98.1 11/24/24 10:32 0.0 11/24/24 08:15 Room Air* 21 Physical Exam General Appearance: Cooperative. Unkept. Cachetic. In no acute distress Head Exam: Normal inspection Neck Exam: Normal inspection. Non-tender. Normal alignment Pulmonary/Respiratory: Chest non-tender. Clear bilateral breath sounds Cardiovascular/Chest: Irregularly irregular rate and rhythm. A-fib controlled rate. No murmurs. No JVD. Peripheral Pulses: 2+ Radial (R). 2+ Radial (L). 2+ Pedal (R). 2+ Pedal (L) Abdominal Exam: Normal bowel sounds. Soft. Nontender. No hepatospenomegaly. No masses Ankle Exam: Negative ankle edema Lower extremities: Negative lower extremity edema Neuro/Mental Status: A&O x3. Coherent Thoughts/Psych: Normal thought pattern. Appropriate mood and affect. Appearance: In no acute distress Skin Exam: Dryness to BLEs Labs/Diagnostic Data Labs Test 11/24/24 15:00 11/21/24 15:45 11/21/24 11:53 Range/Units White Blood Count 13.3 H 4.4-10.8 10^3/uL Red Blood Count 5.02 4.5-5.90 10^6/uL Hemoglobin 15.6 13.5-17.5 g/dL Hematocrit 46.1 41.0-53.0 % Mean Corpuscular Volume 91.9 80.0-100.0 fL Mean Corpuscular Hemoglobin 31.1 28.0-32.0 pg Mean Corpuscular Hemoglobin Concent 33.9 32.0-36.0 g/dL Red Cell Distribution Width 14.2 11.8-14.3 % Platelet Count 168 140-450 10^3/uL Mean Platelet Volume 10.3 6.9-10.8 fL Neutrophils (%) (Auto) 78.0 37.0-80.0 % Lymphocytes (%) (Auto) 10.4 10.0-50.0 % Monocytes (%) (Auto) 7.9 0.0-12.0 % Eosinophils (%) (Auto) 3.3 0.0-7.0 % Basophils (%) (Auto) 0.4 0.0-2.0 % Neutrophils # (Auto) 10.4 H 1.6-8.6 10 ^3/uL Lymphocytes # (Auto) 1.4 0.4-5.4 10 ^3/uL Monocytes # (Auto) 1.1 0-1.3 10 ^3/uL Eosinophils # (Auto) 0.4 0-0.8 10 ^3/uL Basophils # (Auto) 0.1 0-0.2 10 ^3/uL Nucleated Red Blood Cells 0.1 % Sodium Level 137 136-145 mmol/L Potassium Level 4.4 3.5-5.1 mmol/L Chloride Level 101 98-107 mmol/L Carbon Dioxide Level 29 20-31 mmol/L Anion Gap 7 5-15 Blood Urea Nitrogen 18 9-23 mg/dL Creatinine 0.89 0.700-1.30 mg/dL Glomerular Filtration Rate Calc 87 >90 mL/min BUN/Creatinine Ratio 20.2 H 10.0-20.0 Serum Glucose 105 74-106 mg/dL Calcium Level 10.5 H 8.7-10.4 mg/dL Total Bilirubin 1.0 0.2-1.0 mg/dL Aspartate Amino Transferase (AST) 13 13-40 U/L Alanine Aminotransferase (ALT) 11 7-40 U/L Alkaline Phosphatase 77 46-116 U/L C-Reactive Protein High Sensitivity 0.42 <1.0 mg/dL Total Protein 6.8 5.7-8.2 g/dL Albumin 4.3 3.2-4.8 g/dL Urine Color Light-yellow Yellow Urine Clarity Clear Clear Urine pH 5.0 5.0-9.0 Urine Specific [place] 1.030 1.001-1.035 Urine Protein +1 Negative Urine Ketones +1 Negative Urine Blood Negative Negative /uL Urine Nitrite Negative Negative Urine Bilirubin Negative Negative Urine Urobilinogen Normal Negative mg/dL Urine Leukocyte Esterase Negative Negative /uL Urine RBC 7 0 - 3 /hpf Urine Microscopic WBC < 1 0-3 /HPF Urine Squamous Epithelial Cells Few <5 /hpf Urine Bacteria None seen None Seen /hpf Urine Mucus Few None Seen Urine Glucose Normal Normal mg/dL Carcinoembryonic Antigen 3.13 <=5.0 ng/mL Assessment Atrial fibrillation with rapid ventricular rate, now rate controlled, 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 Jameson) * Transthoracic echocardiogram revealed an EF of 40% * Initiate GDMT for HFmrEF. Uptitrate as tolerated * Rate control, continue metoprolol therapy * Initiate therapeutic Lovenox. Transition to NOAC when appropriate * NDE2BO2-UACo Score 4 points. HAS-BLED Score 2 points * Hold antiarrhythmic therapy * Monitor ECG changes and notify * TSH, BNP, Mg, lipid panel, HgbA1C pending Thank you for allowing us to participate in this patient's care. Please call if you have any questions or concerns. This medical document was created using an electronic medical record system with voice recognition software and computerized dictation system. Although this document has been carefully reviewed, there might still be some phonetic and typographical errors. Occasional wrong-word or ``sound-alike substitutions may have occurred due to the inherent limitations of voice recognition software. These areas are purely typographical due to imperfections of the software programs and do not reflect any compromise in the patient's medical care. Please read the chart carefully and recognize, using context, where these substitutions have occurred. Plan discussed with: Patient, Other NYHA Physical activity limitations: Class2(Slight)fatigue,sob (palpitatns, angina w activityv) Date of Service: Nov 24, 2024 Billing Provider: VINICIUS JOSEPH Cardiology Common Codes: [id number] INP/OBS CARE (High) CHHAYA JAMESON MD 11/24/24 1704: Family History: Depression G8 MOTHER FH: heart attack G8 MOTHER Allergies: Coded Allergies: NO KNOWN ALLERGIES (Unverified , 11/21/24) Plan/Recommendation mild to moderate lv dysfunction non compliant start GDMT start doac for afib rate controlled [facility] VINICIUS JOSEPH Nov 24, 2024 16:26 CHHAYA JAMESON MD Nov 24, 2024 17:04
[2024-11-24 16:34] LABS: Erythrocyte Sedimentation Rate 11 mm/hr (0-20)
[2024-11-24] MEDS: ENOXAPARIN SOD 60 MG/0.6 ML SYRINGE SC SCH (21:28)
[2024-11-25] VITALS (10 sets, daily range): BP systolic 108–149; BP diastolic 56–93; PULSE 64–140; RESP 16–22; TEMP 97.2–98.2; O2SAT 95–98
[2024-11-25 08:07] LABS: PSA Free 0.4 ng/mL
[2024-11-25] MEDS: EMPAGLIFLOZIN 10 MG TAB PO SCH (10:09)
[2024-11-25] MEDS: LISINOPRIL 5 MG TAB PO SCH (10:09)
[2024-11-25] MEDS: SPIRONOLACTONE 25 MG TAB PO SCH (10:09)
--- NOTE | 2024-11-25 14:29 | DVHINCON2 ---
Date Seen: Nov 25, 2024 Reason for Consultation Hallux wound History of Present Illness Patient was a 79-year-old male presenting to the emergency room with constipation, be abdominal pain. Long discussion was made with the patient and daughter who was bedside. Apparently, the patient was not follow up with any type of medical provider which was estimated over six years. Patient has been losing weight. Upon arrival to the emergency room the patient was found to be in atrial fibrillation with rapid ventricular rate with a heart rate in the 150s. Patient was also severely hypertensive with a systolic blood pressure of 190. Patient was treated with clonidine as well as IV diltiazem with patient now in a controlled rate. Patient was not take any medications at this time. He denies having any other medical history other than hypertension. He denies having any previous surgeries. Social history includes smoking, one pack a day for over 50 years. Past Medical History See H&P Past Surgical History See H&P Family History: Depression G8 MOTHER FH: heart attack G8 MOTHER Allergies: Coded Allergies: NO KNOWN ALLERGIES (Unverified , 11/21/24) Current Medications Current Medications Medications (Trade) Dose Ordered Sig/Vanessa Route PRN Reason Start Time Stop Time Status Last Admin Lisinopril (Zestril Tablet) 5 mg DAILY PO 11/25/24 10:00 11/25/24 10:09 Empaglifozin (Jardiance) 10 mg DAILY PO 11/25/24 10:00 11/25/24 10:09 Spironolactone (Aldactone) 12.5 mg DAILY PO 11/25/24 10:00 11/25/24 10:09 Enoxaparin Sodium (Lovenox) 60 mg Q12HR SC 11/24/24 22:00 11/25/24 10:09 Vital Signs Vital Signs Date Time Temp Pulse Resp B/P (MAP) Pulse Ox O2 Delivery O2 Flow Rate FiO2 11/25/24 13:41 95 Room Air 0.0 11/25/24 13:41 21 11/25/24 13:30 97.2 94 16 140/80 (100) 97.2 Physical Exam DERMATOLOGIC EXAM: - Skin is dry and cool to the touch dry bilaterally. - Nails 1-5 of the bilateral foot are thickened, discolored, dystrophic, and tender to palpate with subungual debris - Hair loss noted to bilateral feet - small hallux wound with eschar stable VASCULAR EXAM: - DP and PT pulses are palpable bilaterally. 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 - Feet are cool to touch compared to lower legs bilaterally. NEUROLOGIC EXAM: - Normal light touch sensation to the superficial peroneal, deep peroneal, sural, saphenous, and tibial nerve branches. - Protective sensation is diminished as tested with a 5.07 10g Lometa-Ivan bilaterally. MUSCULOSKELETAL EXAM: - No gross deformities - Muscle strength is 5/5 and active motion is pain-free and symmetrical bilaterally - No pain or crepitation with passive range of motion bilaterally to all major pedal joints Labs/Diagnostic Data Labs Test 11/24/24 15:00 11/21/24 15:45 11/21/24 11:53 Range/Units White Blood Count 13.3 H 4.4-10.8 10^3/uL Red Blood Count 5.02 4.5-5.90 10^6/uL Hemoglobin 15.6 13.5-17.5 g/dL Hematocrit 46.1 41.0-53.0 % Mean Corpuscular Volume 91.9 80.0-100.0 fL Mean Corpuscular Hemoglobin 31.1 28.0-32.0 pg Mean Corpuscular Hemoglobin Concent 33.9 32.0-36.0 g/dL Red Cell Distribution Width 14.2 11.8-14.3 % Platelet Count 168 140-450 10^3/uL Mean Platelet Volume 10.3 6.9-10.8 fL Neutrophils (%) (Auto) 78.0 37.0-80.0 % Lymphocytes (%) (Auto) 10.4 10.0-50.0 % Monocytes (%) (Auto) 7.9 0.0-12.0 % Eosinophils (%) (Auto) 3.3 0.0-7.0 % Basophils (%) (Auto) 0.4 0.0-2.0 % Neutrophils # (Auto) 10.4 H 1.6-8.6 10 ^3/uL Lymphocytes # (Auto) 1.4 0.4-5.4 10 ^3/uL Monocytes # (Auto) 1.1 0-1.3 10 ^3/uL Eosinophils # (Auto) 0.4 0-0.8 10 ^3/uL Basophils # (Auto) 0.1 0-0.2 10 ^3/uL Nucleated Red Blood Cells 0.1 % Erythrocyte Sedimentation Rate 11 0-20 mm/hr Sodium Level 137 136-145 mmol/L Potassium Level 4.4 3.5-5.1 mmol/L Chloride Level 101 98-107 mmol/L Carbon Dioxide Level 29 20-31 mmol/L Anion Gap 7 5-15 Blood Urea Nitrogen 18 9-23 mg/dL Creatinine 0.89 0.700-1.30 mg/dL Glomerular Filtration Rate Calc 87 >90 mL/min BUN/Creatinine Ratio 20.2 H 10.0-20.0 Serum Glucose 105 74-106 mg/dL Hemoglobin A1c 5.4 <5.7 % A1C Calcium Level 10.5 H 8.7-10.4 mg/dL Magnesium Level 2.0 1.6-2.6 mg/dL Total Bilirubin 1.0 0.2-1.0 mg/dL Aspartate Amino Transferase (AST) 13 13-40 U/L Alanine Aminotransferase (ALT) 11 7-40 U/L Alkaline Phosphatase 77 46-116 U/L C-Reactive Protein High Sensitivity 0.42 <1.0 mg/dL B-Type Natriuretic Peptide 83.19 0-100 pg/mL Total Protein 6.8 5.7-8.2 g/dL Albumin 4.3 3.2-4.8 g/dL Triglycerides Level 90 < 150 mg/dL Cholesterol Level 131 < 200 mg/dL LDL Cholesterol 77 < 100 mg/dL HDL Cholesterol 40 40-59 mg/dL Free Prostate Specific Antigen 0.40 N/A ng/mL Percent Free Prostate Specific Ag 13.3 . % Prostate Specific Antigen Total 3.0 0.0-4.0 ng/mL Thyroid Stimulating Hormone (TSH) 1.08 0.55-4.78 uIU/mL Urine Color Light-yellow Yellow Urine Clarity Clear Clear Urine pH 5.0 5.0-9.0 Urine Specific [place] 1.030 1.001-1.035 Urine Protein +1 Negative Urine Ketones +1 Negative Urine Blood Negative Negative /uL Urine Nitrite Negative Negative Urine Bilirubin Negative Negative Urine Urobilinogen Normal Negative mg/dL Urine Leukocyte Esterase Negative Negative /uL Urine RBC 7 0 - 3 /hpf Urine Microscopic WBC < 1 0-3 /HPF Urine Squamous Epithelial Cells Few <5 /hpf Urine Bacteria None seen None Seen /hpf Urine Mucus Few None Seen Urine Glucose Normal Normal mg/dL Carcinoembryonic Antigen 3.13 <=5.0 ng/mL Problems(with codes): (1) Fecal impaction (2) Abdominal pain (3) Atrial fibrillation with rapid ventricular response (4) Family history of depression (5) FH: heart attack Plan/Recommendation ASSESSMENT: Patient is a 79-year-old seen on the floor for hallux ulcer PLAN: - The patients chart was reviewed, clinical findings were discussed with the patient, the etiologies of the conditions were discussed in detail, and a treatment plan was agreed to at this time, with both oral and written instructions provided. - reviewed advanced imaging - reviewed labs - wound appears to be stable at this point with just an eschar - patient does have elongated nails which need to be trimmed in clinic - recommend dress with Iodosorb - patient can weightbear as tolerated - he will follow up with me in a week All questions were answered and concerns addressed to the patient's satisfaction. The patient was given the phone number to the clinic and was told how to make contact with the clinic should any concerns or questions arise. Laura oden understands that if any questions or concerns arise prior to the next appointment, we should be contacted immediately. FOLLOW-UP: Continue to follow while inpatient Plan discussed with: Patient Date of Service: Nov 25, 2024 Billing Provider: CHEKO CHIN DPM Common Visit Codes: CONSULT ONLY Consultation Codes: [id number] CONSULT <80MIN CHEKO CHIN DPM Nov 25, 2024 14:29
[2024-11-25] MEDS ORDERED: APIX2.5T PO (14:54)
[2024-11-25] MEDS ORDERED: EMPA1TAB PO (14:54)
[2024-11-25] MEDS ORDERED: SPIR25TA PO (14:54)
[2024-11-25] MEDS ORDERED: LISI-275 PO (14:54)
[2024-11-25] MEDS ORDERED: MET25T PO (14:54)
--- NOTE | 2024-11-25 14:58 | DVHDS2 ---
Discharge Summary Date of Admission Nov 21, 2024 at 15:40 Date of Discharge: Nov 25, 2024 Admitting Diagnosis Obstipation AFib with RVR Labs/Diagnostic Data: Laboratory Results Test 11/24/24 15:00 11/21/24 15:45 11/21/24 11:53 White Blood Count 13.3 10^3/uL (4.4-10.8) Red Blood Count 5.02 10^6/uL (4.5-5.90) Hemoglobin 15.6 g/dL (13.5-17.5) Hematocrit 46.1 % (41.0-53.0) Mean Corpuscular Volume 91.9 fL (80.0-100.0) Mean Corpuscular Hemoglobin 31.1 pg (28.0-32.0) Mean Corpuscular Hemoglobin Concent 33.9 g/dL (32.0-36.0) Red Cell Distribution Width 14.2 % (11.8-14.3) Platelet Count 168 10^3/uL (140-450) Mean Platelet Volume 10.3 fL (6.9-10.8) Neutrophils (%) (Auto) 78.0 % (37.0-80.0) Lymphocytes (%) (Auto) 10.4 % (10.0-50.0) Monocytes (%) (Auto) 7.9 % (0.0-12.0) Eosinophils (%) (Auto) 3.3 % (0.0-7.0) Basophils (%) (Auto) 0.4 % (0.0-2.0) Neutrophils # (Auto) 10.4 10 ^3/uL (1.6-8.6) Lymphocytes # (Auto) 1.4 10 ^3/uL (0.4-5.4) Monocytes # (Auto) 1.1 10 ^3/uL (0-1.3) Eosinophils # (Auto) 0.4 10 ^3/uL (0-0.8) Basophils # (Auto) 0.1 10 ^3/uL (0-0.2) Nucleated Red Blood Cells 0.1 % Erythrocyte Sedimentation Rate 11 mm/hr (0-20) Sodium Level 137 mmol/L (136-145) Potassium Level 4.4 mmol/L (3.5-5.1) Chloride Level 101 mmol/L (98-107) Carbon Dioxide Level 29 mmol/L (20-31) Anion Gap 7 (5-15) Blood Urea Nitrogen 18 mg/dL (9-23) Creatinine 0.89 mg/dL (0.700-1.30) Glomerular Filtration Rate Calc 87 mL/min (>90) BUN/Creatinine Ratio 20.2 (10.0-20.0) Serum Glucose 105 mg/dL (74-106) Hemoglobin A1c 5.4 % A1C (<5.7) Calcium Level 10.5 mg/dL (8.7-10.4) Magnesium Level 2.0 mg/dL (1.6-2.6) Total Bilirubin 1.0 mg/dL (0.2-1.0) Aspartate Amino Transferase (AST) 13 U/L (13-40) Alanine Aminotransferase (ALT) 11 U/L (7-40) Alkaline Phosphatase 77 U/L (46-116) C-Reactive Protein High Sensitivity 0.42 mg/dL (<1.0) B-Type Natriuretic Peptide 83.19 pg/mL (0-100) Total Protein 6.8 g/dL (5.7-8.2) Albumin 4.3 g/dL (3.2-4.8) Triglycerides Level 90 mg/dL (< 150) Cholesterol Level 131 mg/dL (< 200) LDL Cholesterol 77 mg/dL (< 100) HDL Cholesterol 40 mg/dL (40-59) Free Prostate Specific Antigen 0.40 ng/mL (N/A) Percent Free Prostate Specific Ag 13.3 % (.) Prostate Specific Antigen Total 3.0 ng/mL (0.0-4.0) Thyroid Stimulating Hormone (TSH) 1.08 uIU/mL (0.55-4.78) Urine Color Light-yellow (Yellow) Urine Clarity Clear (Clear) Urine pH 5.0 (5.0-9.0) Urine Specific [place] 1.030 (1.001-1.035) Urine Protein +1 (Negative) Urine Ketones +1 (Negative) Urine Blood Negative /uL (Negative) Urine Nitrite Negative (Negative) Urine Bilirubin Negative (Negative) Urine Urobilinogen Normal mg/dL (Negative) Urine Leukocyte Esterase Negative /uL (Negative) Urine RBC 7 /hpf (0 - 3) Urine Microscopic WBC < 1 /HPF (0-3) Urine Squamous Epithelial Cells Few /hpf (<5) Urine Bacteria None seen /hpf (None Seen) Urine Mucus Few (None Seen) Urine Glucose Normal mg/dL (Normal) Carcinoembryonic Antigen 3.13 ng/mL (<=5.0) Other Laboratory Tests 11/24/24 15:00 Brief Hx & Hospital Course: History of Present Illness Patient was a 79-year-old male presenting to the emergency room with constipation, be abdominal pain. Long discussion was made with the patient and daughter who was bedside. Apparently, the patient was not follow up with any type of medical provider which was estimated over six years. Patient has been losing weight. Upon arrival to the emergency room the patient was found to be in atrial fibrillation with rapid ventricular rate with a heart rate in the 150s. Patient was also severely hypertensive with a systolic blood pressure of 190. Patient was treated with clonidine as well as IV diltiazem with patient now in a controlled rate. Patient was not take any medications at this time. He denies having any other medical history other than hypertension. He denies having any previous surgeries. Social history includes smoking, one pack a day for over 50 years. Course of hospitalization: Patient was started on beta-madie therapy after initial rate control in the emergency room. Patient was put on therapeutic dose Lovenox. Patient echocardiogram which revealed ejection fraction of 40%. Cardiology consultation was obtained with guideline directed medical therapy started. Patient was anticoagulation will be changed to Eliquis at the time of discharge. Long discussion was made with the patient regarding all findings. Patient was agreeable to follow up with the PCP established by the [facility]. Patient was able to evacuate his bowels. Plan of care was discussed with the patient and daughter. All questions answered. Physical examination General: Alert and Oriented x3. No acute distress. Well-nourished. Eyes: EOMI. Anicteric. HENT: Moist mucous membranes. Lungs: Clear to auscultation bilaterally. No accessory muscle use. Cardiovascular: Regular rate and rhythm. No murmur. No JVD. Abdomen: Soft, non-tender and non-distended. No palpable masses. Extremities: No edema. Non-tender. Skin: No rashes or lesions. Warm. Neurologic: No focal neurological deficits. CN II-XII grossly intact, but not individually tested. Psychiatric: Cooperative. Appropriate mood and affect. Total time spent with patient discussing and formulating plan of care: 35 minutes. This medical document was created using an electronic medical record system with [employer] dictation system. Although this document has been carefully reviewed, there may still be some phonetic and typographical errors. These areas are purely typographical due to imperfections of the software programs, and do not reflect any compromise in the patient's medical care. Consults/Reason for consult Cardiology: Acute systolic heart failure Condition at Discharge: Guarded Final Diagnosis/Problems List Atrial fibrillation with rapid ventricular rate Diagnosis: -leukocytosis, ruled out sepsis , probably secondary to sirs -atrial fibrillation with rapid ventricular rate -cachexia -nicotine dependence -constipation -acute systolic heart failure Discharge Disposition: Home Discharge Instruct/Medications Diet: Regular Activity: No Restrictions, As Tolerated Follow Up/Referral: Discharge Clinic in one week Medications: Refer to medication reconciliation form 36 Discharge Statement: "Patient was advised to return to the ER or call 911 if any headaches, dizziness, shortness of breath, chest pain, abdominal pain, bleeding, fevers, or worsening of medical condition. Patient was counseled about treatment plan, medications, possible side effects, patientverbalized understanding. All questions were answered to the best of my ability. This discharge took greater then 30 minutes in planning, reviewing documentation, counseling the patient, and discussing with other team members." ASSESSMENT ASSESSMENT Assessment Atrial fibrillation with rapid ventricular rate Date of Service: Nov 25, 2024 Billing Provider: FRANCIA BROWN NP Common Visit Codes: 04198-NJX/OBS DISCH DAY >30min FRANCIA BROWN NP Nov 25, 2024 14:58
--- NOTE | 2024-11-25 15:04 | ECG ---
[facility] Test Date: 2024-11-21 Test Time: 11:49:02 Pat Name: GARY LOPEZ Department: ER Room: [facility] Gender: M Program Support Specialist: ROSSY : 1945 Requested By: JENNIFER MAE Order Number: [id number] Reading MD: Measurements Intervals [place] Rate: 142 P: 0 WA: 0 QRS: 103 QRSD: 105 T: -1 QT: 302 QTc: 464 Interpretive Statements Atrial fibrillation with rapid V-rate Right axis deviation Borderline T abnormalities, inferior leads Baseline wander in lead(s) V3 Please click the below link to view image of tracing.
[2024-11-26] VITALS (10 sets, daily range): BP systolic 96–143; BP diastolic 59–80; PULSE 81–98; RESP 1–19; TEMP 36.9; O2SAT 94–96
[2024-11-26] MEDS ORDERED: AMIO200T33 PO (11:10)
--- NOTE | 2024-11-26 11:13 | DVHPN2 ---
Subjective Patient denies any symptoms at this time. Reviewed: Care Plan, H&P, Labs, Medications, Previous Orders, Radiology Changes from previous H/P or p: No Changes Eyes: No Pain, No Vision change, No Conjunctivae inflammation, No Eyelid inflammation, No Other, No Redness ENT: No Ear pain, No Ear discharge, No Nose pain, No Nose discharge, No Nose congestion, No Mouth pain, No Mouth swelling, No Throat pain, No Throat swelling, No Other Cardiovascular: No Chest Pain, No Palpitations, No Orthopnea, No Paroxysmal Noc. Dyspnea, No Edema, No Lt Headedness, No Other Respiratory: No Cough, No Dry, No Shortness of breath, No SOB with excertion, No Wheezing, No Hemoptysis, No Pleuritic Pain, No Sputum, No Other Gastrointestinal: Abdominal Pain Genitourinary: No Dysuria, No Frequency, No Incontinence, No Hematuria, No Retention, No Other Musculoskeletal: No other, No neck pain, No shoulder pain, No arm pain, No back pain, No hand pain, No leg pain, No foot pain Skin: No Rash, No Lesions, No Jaundice, No Bruising, No Other Objective Vitals Vital Signs Date Time Temp Pulse Resp B/P (MAP) Pulse Ox O2 Delivery O2 Flow Rate FiO2 11/26/24 10:15 110 99/64 11/26/24 10:13 96 Room Air* 0 21 11/26/24 09:00 97.9 16 97.9 Intake/Output Intake and Output 11/26/24 07:00 Intake Total 1240 ml Output Total 500 ml Balance 740 ml Intake Oral 1240 ml Output Urine Total 500 ml # Voids 1 # Bowel Movements 2 General Appearance: Alert, Oriented X3, Cooperative, No acute distress HEENT: Atraumatic, PERRLA, EOMI, Mucous membr. moist/pink Neck: Supple Lungs: Clear to auscultation, Normal air movement Cardiovascular: Regular rate, Normal S1, Normal S2, No murmurs, Gallops, Rubs Abdomen: Normal bowel sounds, Soft, No tenderness Back: Midline Tenderness Musculoskeletal: Normal sensory function, Normal motor function Extremities: No clubbing, No cyanosis Neuro: Cranial nerves 3-12 NL Skin: Dry, Intact, Warm, Wounds (See nurse notes and pictures) Psych/Mental Status: Mental status NL Medications Current Medications Medications Dose Ordered Sig/Vanessa Route Start Time Stop Time Status Last Admin Dose Admin Nitroglycerin 0.4 mg Q5MINP PRN SL 11/21/24 15:45 Morphine Sulfate 2 mg Q30M PRN IV 11/21/24 15:45 Docusate Sodium 100 mg BID PO 11/21/24 22:00 11/26/24 10:15 100 MG Metoprolol Tartrate 12.5 mg BID PO 11/21/24 22:00 11/26/24 10:15 12.5 MG Morphine Sulfate 1 mg Q4HPRN PRN IV 11/21/24 15:45 Acetaminophen/ Hydrocodone Bitart 1 tab Q6HPRN PRN PO 11/21/24 15:45 Acetaminophen 500 mg Q8HP PRN PO 11/21/24 15:45 Ondansetron HCl 4 mg Q6HP PRN IV 11/21/24 15:45 Ipratropium [place] 0.5 mg Q4HPRN PRN NEB 11/21/24 15:45 Lactulose 30 ml Q6HPRN PRN PO 11/21/24 15:45 11/22/24 10:41 30 ML Levalbuterol HCl 0.625 mg Q4HPRN PRN NEB 11/21/24 22:15 Lisinopril 5 mg DAILY PO 11/25/24 10:00 11/25/24 10:09 5 MG Empaglifozin 10 mg DAILY PO 11/25/24 10:00 11/26/24 10:15 10 MG Spironolactone 12.5 mg DAILY PO 11/25/24 10:00 11/25/24 10:09 12.5 MG Enoxaparin Sodium 60 mg Q12HR SC 11/24/24 22:00 11/26/24 10:14 60 MG Laboratory Results Laboratory Tests 11/24/24 15:00 Urinalysis Test 11/21/24 15:45 Urine Color Light-yellow (Yellow) Urine Clarity Clear (Clear) Urine pH 5.0 (5.0-9.0) Urine Specific [place] 1.030 (1.001-1.035) Urine Protein +1 (Negative) Urine Ketones +1 (Negative) Urine Blood Negative /uL (Negative) Urine Nitrite Negative (Negative) Urine Bilirubin Negative (Negative) Urine Urobilinogen Normal mg/dL (Negative) Urine Leukocyte Esterase Negative /uL (Negative) Urine RBC 7 /hpf (0 - 3) Urine Microscopic WBC < 1 /HPF (0-3) Urine Squamous Epithelial Cells Few /hpf (<5) Urine Bacteria None seen /hpf (None Seen) Urine Mucus Few (None Seen) Urine Glucose Normal mg/dL (Normal) Labs and/or images reviewed: Labs reviewed by me, Image(s) reviewed by me Assessment/Plan Assessment/Plan Impression: -obstipation -leukocytosis, rule out sepsis -atrial fibrillation with rapid ventricular rate -cachexia -nicotine dependence Plan: -no events overnight. Patient was discharged yesterday. Apparently had difficulty walking. PT ambulated patient with walker. Patient will be discharged home with DME. Patient also found to have uncontrolled AFib with ambulation. Patient will be started on amiodarone 400 mg p.o. daily. Unable to titrate up beta madie given marginal blood pressure. -renal ultrasound, check PSA -echocardiogram: EF 40% -cardiology consultation -rate control with beta-blockers -bronchodilators. -chest x-ray -repeat labs Total time spent with patient discussing and formulating plan of care: 35 minutes. This medical document was created using an electronic medical record system with [employer] dictation system. Although this document has been carefully reviewed, there may still be some phonetic and typographical errors. These areas are purely typographical due to imperfections of the software programs, and do not reflect any compromise in the patient's medical care. Plan discussed with: Patient, Other (RN) My Orders Orders - FRANCIA BROWN NP Procedure Category Date Status Time Discontinue Wheeler YVES 11/25/24 In Process Catheter 14:49 Discharge DISCHARGE 11/25/24 Transmitted 14:49 Schedule For Dc YVES 11/25/24 In Process Clinic F/U 14:49 Apply Barrier Cream YVES 11/25/24 In Process 12:21 * Dietary Consult CONS 11/25/24 Transmitted 17:44 Pt Request For Service PT 11/25/24 Logged 18:26 Dme: Walker DME 11/26/24 Transmitted 11:08 * Rolling Machine Operator CONS 11/26/24 Transmitted Consult Amiodarone Tablet PHA 11/26/24 Verified (Cordarone Tablet) 11:15 Date of Service: Nov 26, 2024 Billing Provider: FRANCIA BROWN NP Common Visit Codes: [id number] INP/OBS CARE(HIGH) FRANCIA BROWN NP Nov 26, 2024 11:13
[2024-11-26] MEDS: AMIODARONE HCL 200 MG TAB PO ONE (13:25)
[2024-11-26] MEDS: METOPROLOL TARTRATE 1MG/1ML-5ML VIAL IV ONE (15:30)
== END 2024-11-26 20:04 | disposition home or self-care (01) | DRG 388 ==
LOC: ER 11:22 → EDBD 11:22 → OVERFLOW 15:40 → TELE-WESTW 21:30
PROVIDERS: ADMIT Nurse Practitioner Acute Care; ATTEND Nurse Practitioner Acute Care
DX: K56.41 Fecal impaction (principal); I50.21 Acute systolic (congestive) heart failure; N17.9 Acute kidney failure, unspecified; R64 Cachexia; Z68.1 Body mass index [BMI] 19.9 or less, adult; R65.10 Systemic inflammatory response syndrome (SIRS) of non-infectious origin without acute organ dysfunction; I48.91 Unspecified atrial fibrillation; N20.0 Calculus of kidney; N28.1 Cyst of kidney, acquired; D72.829 Elevated white blood cell count, unspecified; F17.210 Nicotine dependence, cigarettes, uncomplicated; I11.0 Hypertensive heart disease with heart failure; I16.0 Hypertensive urgency; I34.81 Nonrheumatic mitral (valve) annulus calcification; Z81.8 Family history of other mental and behavioral disorders; Z82.49 Family history of ischemic heart disease and other diseases of the circulatory system
CPT/HCPCS: 36415; 71045; 74176; 76775; 80053; 80061; 81001; 82378; 83036; 83735; 83880; 84154; 84443; 85025; 85652; 86141; 93005; 93306; 94640; 96374; 97163; 99291; G0378

== ENCOUNTER 2024-12-30 08:57 | Inpatient (IN) | payer OTHER, MEDICARE ==
[~2024-12-30] VITALS: Ht 182.9 cm; Wt 63.1 kg
[~2024-12-30 08:57] MED LIST: AMIO200T33 PO; APIX2.5T PO; EMPA1TAB PO; LISI-275 PO; MET25T PO; SPIR25TA PO
--- NOTE | 2024-12-30 09:31 | ED.PDOC ---
GI ASSESSMENT HPI Comments 79 year old male presents to the ED via EMS with a chief complaint of diarrhea onset 2 days. Patient states he has been experiencing diarrhea for the past week, for the past 12 hours noticed blood in stool with rectal pain, blood when he wipes. He is currently on blood thinners. He was seen about 1 month ago at [facility] due to constipation. O2 sat was 80% on RA, placed on oxygen. PMHx a-fib, HTN, CHF. Denies chest pain, headache, weakness, dizziness, nausea, vomiting, fevers, chills. No other symptoms or modifying factors present at this time. Chief Complaint: Rectal Pain Time Seen by MD: 09:15 Primary Care Provider: UNKNOWN Reviewed Notes: Medications, Allergies Allergies: Coded Allergies: NO KNOWN ALLERGIES (Unverified , 11/21/24) Home Meds Active Scripts Amiodarone Hcl (Amiodarone Hcl) 200 Mg Tab, 1 TAB PO DAILY for 30 Days, #30 TAB 1 Refill Prov:FRANCIA BROWN [employer]OUNT [employer] SUPERVISOR 11/26/24 Apixaban Base (ELIQUIS) 2.5 Mg Tab, 2.5 MG PO BID for 30 Days, #60 TAB 1 Refill Prov:FRANCIA BROWN [employer]OUNT [employer] SUPERVISOR 11/25/24 Lisinopril (Lisinopril) 5 Mg Tab, 5 MG PO DAILY for 30 Days, #30 TAB 1 Refill Prov:FRANCIA BROWN [employer]OUNT GROUP SUPERVISOR 11/25/24 Spironolactone (Aldactone) 25 Mg Tab, 12.5 MG PO DAILY for 30 Days, #15 TAB 1 Refill Prov:FRANCIA BROWN [employer]OUNT GROUP SUPERVISOR 11/25/24 Metoprolol Tartrate (Lopressor) 25 Mg Tb, 12.5 MG PO BID for 30 Days, #30 TAB 1 Refill Prov:FRANCIA BROWN ACCOUNT GROUP SUPERVISOR 11/25/24 Empagliflozin (Jardiance) 10 Mg Tab, 10 MG PO DAILY for 30 Days, #30 TAB 1 Refill Prov:FRANCIA BROWN [employer]OUNT GROUP SUPERVISOR 11/25/24 Information Source: Patient, Emergency Med Personnel Mode of Arrival: EMS Timing: Days Duration: Since onset Prehospital treatment: Oxygen Severity: Moderate Recent: None Recent Hx of: None Modifying Factors: Nothing Associated sign and symptoms: Diarrhea, Blood in Stool Past Medical History PAST MEDICAL HISTORY: AFIB, CHF, HTN Surgical History: Denies all surgeries Family History Family History: No family hx of Cancer, No family hx of DM, No family hx of Heart cameron Social History Smoker: Cigarettes Alcohol: Denies ETOH Use Drugs: Denies Drug Use Lives In: Home Constitutional: denies: chills, diaphoresis, fatigue, fever, malaise, sweats, weakness, others EENTM: denies: blurred vision, double vision, ear bleeding, ear discharge, ear drainage, ear pain, ear ringing, eye pain, eye redness, hearing loss, mouth pain, mouth swelling, nasal discharge, nose bleeding, nose congestion, nose pain, photophobia, tearing, throat pain, throat swelling, voice changes, others Respiratory: denies: cough, hemoptysis, orthopnea, SOB at rest, shortness of breath, SOB with excertion, stridor, wheezing, others Cardiovascular: denies: chest pain, dizzy spells, diaphoresis, Dyspnea on exertion, edema, irregular heart beat, left arm pain, lightheadedness, palpitations, PND, syncope, others Gastrointestinal: reports: diarrhea, rectal bleeding, rectal pain; denies: abdomen distended, abdominal pain, blood streaked bowels, constipated, dysphagia, difficulty swallowing, hematemesis, melena, nausea, poor appetite, poor fluid intake, vomiting, others Genitourinary: denies: burning, dysuria, flank pain, frequency, hematuria, incontinence, penile discharge, penile sore, pain, testicle pain, testicle swelling, urgency, others Neurological: denies: dizziness, fainting, headache, left sided numbness, left sided weakness, numbness, paresthesia, pre-existing deficit, right sided numbness, right sided weakness, seizure, speech problems, tingling, tremors, weakness, others Musculoskeletal: denies: back pain, gout, joint pain, joint swelling, muscle pain, muscle stiffness, neck pain, others Integumetry: denies: bruises, change in color, change in hair/nails, dryness, laceration, lesions, lumps, rash, wounds, others Allergic/Immunocompromised: denies: Difficulty Healing, Frequent Infections, Hives, Itching, others Hematologic/Lymphatic: denies: anemia, blood clots, easy bleeding, easy bruisi ng, swollen glands, others Endocrine: denies: excessive hunger, excessive sweating, excessive thirst, exce ssive urination, flushing, intolerance to cold, intolerance to heat, unexplained weight gain, unexplained weight loss, others Psychiatric: denies: anxiety, bipolar disorder, depression, hopeless, panic disorder, schizophrenia, sleepless, suicidal, others All Other Systems: Reviewed and Negative Physical Exam General Appearance: No Apparent Distress, Normal HEENT: Normal ENT Inspection, Pharynx Normal, TMs Normal Neck: Full Range of Motion, Non-Tender, Normal, Normal Inspection Respiratory: Chest Non-Tender, Lungs Clear, No Accessory Muscle Use, No Respiratory Distress, Normal Breath Sounds Cardiovascular: No Edema, No JVD, No Murmur, No Gallop, Normal Peripheral Pulses, Regular Rate/Rhythm Breast Exam: Deferred Gastrointestinal: No Organomegaly, Non Tender, No Pulsatile Mass, Normal Bowel Sounds, Soft Genitalia: Deferred Pelvic: Deferred Rectal: Deferred Extremities: No calf tenderness, Normal capillary refill, Normal inspection, Normal range of motion, Non-tender, No pedal edema Musculoskeletal : Apperance: Normal Neurologic: Alert, outside maintenance worker II-XII nml as Tested, No Motor Deficits, Normal Affect, Normal Mood, No Sensory Deficits Cerebellar Function: Normal Reflexes: Normal Skin: Dry, Normal Color, Warm Lymphatic: No Adenopathy Was a procedure done? Was a procedure done?: No X-Ray, Labs, Meds, VS Vital Signs Date Time Temp Pulse Resp B/P (MAP) Pulse Ox O2 Delivery O2 Flow Rate FiO2 12/30/24 10:37 97.6 72 20 143/72 (95) 95 97.6 12/30/24 10:37 72 20 95 Room Air* 0 21 12/30/24 09:00 97.3 103 14 116/81 (93) 98 97.3 Lab Test 12/30/24 09:36 12/30/24 09:32 Range/Units White Blood Count 17.6 H 4.4-10.8 10^3/uL Red Blood Count 5.12 4.5-5.90 10^6/uL Hemoglobin 16.4 13.5-17.5 g/dL Hematocrit 47.1 41.0-53.0 % Mean Corpuscular Volume 92.0 80.0-100.0 fL Mean Corpuscular Hemoglobin 32.0 28.0-32.0 pg Mean Corpuscular Hemoglobin Concent 34.8 32.0-36.0 g/dL Red Cell Distribution Width 13.8 11.8-14.3 % Platelet Count 249 140-450 10^3/uL Mean Platelet Volume 8.9 6.9-10.8 fL Neutrophils (%) (Auto) 89.1 H 37.0-80.0 % Lymphocytes (%) (Auto) 7.3 L 10.0-50.0 % Monocytes (%) (Auto) 3.3 0.0-12.0 % Eosinophils (%) (Auto) 0.1 0.0-7.0 % Basophils (%) (Auto) 0.2 0.0-2.0 % Neutrophils # (Auto) 15.7 H 1.6-8.6 10 ^3/uL Lymphocytes # (Auto) 1.3 0.4-5.4 10 ^3/uL Monocytes # (Auto) 0.6 0-1.3 10 ^3/uL Eosinophils # (Auto) 0 0-0.8 10 ^3/uL Basophils # (Auto) 0 0-0.2 10 ^3/uL Nucleated Red Blood Cells 0.1 % Prothrombin Time 11.2 9.3-11.8 sec Prothrombin Time INR 1.06 0.9-1.15 Activated Partial Thromboplast Time 30.4 24.5-34.5 SEC Sodium Level 134 L 136-145 mmol/L Potassium Level 5.3 H 3.5-5.1 mmol/L Chloride Level 100 98-107 mmol/L Carbon Dioxide Level 25 20-31 mmol/L Anion Gap 9 5-15 Blood Urea Nitrogen 43 H 9-23 mg/dL Creatinine 1.81 H 0.700-1.30 mg/dL Glomerular Filtration Rate Calc 38 >90 mL/min BUN/Creatinine Ratio 23.8 H 10.0-20.0 Serum Glucose 132 H 74-106 mg/dL Calcium Level 11.8 H 8.7-10.4 mg/dL [address] [address] Ph: [phone] DIAGNOSTIC IMAGING Diagnostic Imaging Report : [id number] Signed PATIENT: GARY LOPEZ ACCT: [id number] UNIT: [id number] : 1945 LOC: ER ROOM / BED: / AGE / SEX: 79 / M ADM STATUS: REG ER SERVICE [id number] ORDERING PHYSICIAN: JACKIE QUEEN MD PROCEDURE(s): ABPL - CT AB PEL WO CON-NO ORAL OR IV REASON: abdominal pain ORDER NUMBER(s): [id number], ACCESSION NUMBER(s): [id number] Exam: CT CT AB PEL WO CON-NO ORAL OR IV History: abdominal pain Comparison Study: CT scan of the abdomen pelvis performed on 11/21/2024 TECHNIQUE: Multidetector CT of the abdomen and pelvis was performed from lung bases to ischial tuberosities. Imaging was performed without IV contrast using axial images. Coronal and sagittal reformats were obtained from the axial data set by the technologist. Radiation Dose Information: CT Dose: CTDI volume is 5.11 mGy. Dose-length product is 300.34 mGy*cm FINDINGS: Evaluation of solid organs is limited due to lack of intravenous contrast use. Findings: Lung Bases: No acute or significant lung base finding. Normal heart size. No pleural or pericardial effusion. Liver: The liver is normal in size. No focal lesions. Gallbladder and Biliary Tree: Sludge in the gallbladder. No inflammatory changes noted. Spleen: Unremarkable Pancreas: The pancreas is grossly normal in appearance. Adrenal Glands: Unremarkable Kidneys: Bilateral nonobstructive intrarenal calculi measuring up to 4 mm in the right kidney and 2 mm in the left kidney. Bilateral renal cysts, the largest is a parapelvic cysts in the lower pole of the left kidney measuring 3.2 cm. GI Tract: The stomach is grossly normal in appearance. The small bowel is normal in caliber. Sigmoid diverticulosis without acute diverticulitis. There is stool in the rectum. The appendix is visualized and is normal. Peritoneal cavity: No pneumoperitoneum. No ascites. Lymphadenopathy: No mesenteric, retroperitoneal or periportal lymphadenopathy. Abdominal Wall and Mesentery: Unremarkable. Vasculature: The visualized abdominal aorta is normal in size and caliber. Evaluation of abdominal and pelvic vessels is limited due to lack of intravenous contrast. There are atherosclerotic calcifications in the aorta. Pelvic Organs: Unremarkable Urinary Bladder: Grossly unremarkable for degree of distention. Musculoskeletal: No aggressive focal bony lesions, acute fractures or dislocation. Grade 1 anterolisthesis at L4-L5. Soft tissues: Unremarkable IMPRESSION: 1. No acute abdominal or pelvic finding. 2. Stool in the rectum suggesting fecal retention. 3. Nonobstructive bilateral intrarenal calculi. Radiation optimization: All CT scans at this facility use at least one of these dose optimization techniques: automated exposure control mA and/or kV adjustment per patient size (includes targeted exams where dose is matched to clinical indication) or iterative reconstruction. ATED BY: SCOTT TIDWELL MD DICTATED DATE/TIME: 12/30/24 105 SIGNED BY: SCOTT TIDWELL MD SIGNED DATE/TIME: 12/30/24 105 CC: Time of 1ST Reevaluation: 09:45 Reevaluation 1ST: Unchanged Patient Education/Counseling: Diagnosis, Treatment, Prognosis Family Education/Counseling: No Family Present Additional Information The following tests were ordered, and results were reviewed by me: PTPTT, CBC, BMP, CT AB PEL WITH IV CON Additional Information was gathered from interviewing the following independent historians: EMS I reviewed and agreed with the following test results read by other providers: CT AB P EL WITH IV CON I discussed treatment and results with medical personnel and: Patient Comprehensive systems review obtained and negative except for what is stated in the HPI. Critical Care Note Critical Care Time?: No Stability Stability form required: No I personally scribed for JACKIE QUEEN MD ([email or web address]) on 12/30/24 at 09:31. Electronically submitted by Macy Cuevas ([email or web address]). I personally scribed for JACKIE QUEEN MD ([email or web address]) on 12/30/24 at 09:37. Electronically submitted by Macy Cuevas ([email or web address]). I personally scribed for JACKIE QUEEN MD ([email or web address]) on 12/30/24 at 11:13. Electronically submitted by Macy Cuevas ([email or web address]). JACKIE QUEEN MD Dec 30, 2024 09:31
[2024-12-30 09:50] LABS: Basophils # (auto) 0 10 ^3/uL (0-0.2); Basophils % (auto) 0.2 % (0.0-2.0); Eosinophils # (auto) 0 10 ^3/uL (0-0.8); Eosinophils % (auto) 0.1 % (0.0-7.0); Hematocrit 47.1 % (41.0-53.0); Hemoglobin 16.4 g/dL (13.5-17.5); Lymphocytes # (auto) 1.3 10 ^3/uL (0.4-5.4); Lymphocytes % (auto) 7.3 % (10.0-50.0); Mean Corpuscular Hgb Conc. 34.8 g/dL (32.0-36.0); Monocytes # (auto) 0.6 10 ^3/uL (0-1.3); Monocytes % (auto) 3.3 % (0.0-12.0); Neutrophils # (auto) 15.7 10 ^3/uL (1.6-8.6); Neutrophils % (auto) 89.1 % (37.0-80.0); Nucleated Red Blood Cells % 0.1 %; Platelet Count (auto) 249 10^3/uL (140-450); Red Blood Cells 5.12 10^6/uL (4.5-5.90); Red Cell Distribution Width 13.8 % (11.8-14.3); White Blood Cell 17.6 10^3/uL (4.4-10.8)
[2024-12-30 10:05] LABS: INR 1.06 (0.9-1.15); Partial Thromboplastin Time 30.4 SEC (24.5-34.5); Prothrombin Time 11.2 sec (9.3-11.8)
[2024-12-30 10:06] LABS: Chloride 100 mmol/L (98-107)
[2024-12-30 10:07] LABS: Anion Gap 9 (5-15); Carbon Dioxide 25 mmol/L (20-31)
[2024-12-30 10:08] LABS: Calcium 11.8 mg/dL (8.7-10.4); Potassium 5.3 mmol/L (3.5-5.1); Sodium 134 mmol/L (136-145)
[2024-12-30 10:12] LABS: BUN/Creatinine Ratio 23.8 (10.0-20.0); Blood Urea Nitrogen 43 mg/dL (9-23); Glucose 132 mg/dL (74-106)
[2024-12-30 10:37] VITALS: PULSE 72; RESP 20; O2SAT 95
--- NOTE | 2024-12-30 10:53 | DVH ---
Exam: CT CT AB PEL WO CON-NO ORAL OR IV History: abdominal pain Comparison Study: CT scan of the abdomen pelvis performed on 11/21/2024 TECHNIQUE: Multidetector CT of the abdomen and pelvis was performed from lung bases to ischial tubero sities. Imaging was performed without IV contrast using axial images. Coronal and sagittal reformats were obtained from the axial data set by the technologist. Radiation Dose Information: CT Dose: CTDI volume is 5.11 mGy. Dose-length product is 300.34 mGy*cm FINDINGS: Evaluation of solid organs is limited due to lack of intravenous contrast use. Findings: Lung Bases: No acute or significant lung base finding. Normal heart size. No pleural or pericardial effusion. Liver: The liver is normal in size. No focal lesions. Gallbladder and Biliary Tree: Sludge in the gallbladder. No inflammatory changes noted. Spleen: Unremarkable Pancreas: The pancreas is grossly normal in appearance. Adrenal Glands: Unremarkable Kidneys: Bilateral nonobstructive intrarenal calculi measuring up to 4 mm in the right kidney and 2 m m in the left kidney. Bilateral renal cysts, the largest is a parapelvic cysts in the lower pole of the left kidney measuring 3.2 cm. GI Tract: The stomach is grossly normal in appearance. The small bowel is normal in caliber. Sigmoid diverticulosis without acute diverticulitis. There is stool in the rectum. The appendix is visualized and is normal. Peritoneal cavity: No pneumoperitoneum. No ascites. Lymphadenopathy: No mesenteric, retroperitoneal or periportal lymphadenopathy. Abdominal Wall and Mesentery: Unremarkable. Vasculature: The visualized abdominal aorta is normal in size and caliber. Evaluation of abdominal a nd pelvic vessels is limited due to lack of intravenous contrast. There are atherosclerotic calcific ations in the aorta. Pelvic Organs: Unremarkable Urinary Bladder: Grossly unremarkable for degree of distention. Musculoskeletal: No aggressive focal bony lesions, acute fractures or dislocation. Grade 1 anterolist hesis at L4-L5. Soft tissues: Unremarkable IMPRESSION: 1. No acute abdominal or pelvic finding. 2. Stool in the rectum suggesting fecal retention. 3. Nonobstructive bilateral intrarenal calculi. Radiation optimization: All CT scans at this facility use at least one of these dose optimization felipe hniques: automated exposure control mA and/or kV adjustment per patient size (includes targeted exam s where dose is matched to clinical indication) or iterative reconstruction.
--- NOTE | 2024-12-30 14:34 | DVHHP2 ---
History of Present Illness Reason for Visit: Rectal bleed History of Present Illness 79-year-old male history AFib hypertension CHF and kidney disease chief complaint patient is here with his daughter as she states patient has been having diarrhea for a month now and she noticed there was blood in his stool recently. It is mostly with wiping. She states the rectal bleeding is becoming more frequent than normal. Patient also complain of some abdominal pain. This speak with the family patient has been taking his medication that was provided him a last discharge as prescribed along with his Eliquis. Patient states he still trying to get connected with the [facility] since he had been discharged. Patient was found to be hypoxic also on room air 80% he was placed on 2 L nasal cannula. He denies any chest pain he was still currently smoking. He also denies any shortness of the breath but just complains of abdominal pain he has not had a recent colonoscopy or EGD in the past. When evaluating patient's labs and imaging from ED white count was 17.6 sodium was 134 potassium was 5.3 creatinine was 1.81 and 43 glucose was [address] scan abdomen pelvis shows fecal impaction bilateral nonobstructing kidney stones. With these findings we will admit for further workup and care Past Medical History AFib hypertension CHF, kidney disease Past Surgical History Denies surgical history Family History Reviewed, non-contributory to the management of this case. Past Social History Patient is still smoke by history denies drug or alcohol use lives with daughter Review of Systems Constitutional: No: Fever, Chills, Sweats, Weakness, Malaise, Other Eyes: No: Pain, Vision change, Conjunctivae inflammation, Eyelid inflammation, Other, Redness ENT: No: Ear pain, Ear discharge, Nose pain, Nose discharge, Nose congestion, Mouth pain, Mouth swelling, Throat pain, Throat swelling, Other Respiratory: No: Cough, Dry, Shortness of breath, SOB with excertion, Wheezing, Hemoptysis, Pleuritic Pain, Sputum, Wheezing, Other Cardiovascular: No: Chest Pain, Palpitations, Orthopnea, Paroxysmal Noc. Dyspnea, Edema, Lt Headedness, Other Gastrointestinal: Abdominal Pain; No: Nausea, Vomiting, Diarrhea, Constipation, Melena, Hematochezia, Other Genitourinary: No Dysuria, No Frequency, No Incontinence, No Hematuria, No Retention, No Other Musculoskeletal: No: other, neck pain, shoulder pain, arm pain, back pain, hand pain, leg pain, foot pain Skin: No: Rash, Lesions, Jaundice, Bruising, Other Neurological: No: Weakness, Numbness, Incoordination, Change in speech, Confusion, Seizures, Other Allergies: Coded Allergies: NO KNOWN ALLERGIES (Unverified , 11/21/24) Exam Vital Signs Vital Signs Date Time Temp Pulse Resp B/P (MAP) Pulse Ox O2 Delivery O2 Flow Rate FiO2 12/30/24 10:37 97.6 72 20 143/72 (95) 95 97.6 12/30/24 10:37 Room Air* 0 21 General Appearance: Alert, Oriented X3, Cooperative, No acute distress HEENT: Atraumatic, PERRLA, EOMI, Mucous membr. moist/pink Labs/Xrays Ct scan of the abdomen pelvis shows fecal impaction and bilateral nonobstructing kidney stones I reviewed labs, imaging CT scan abdomen pelvis, EKG and all diagnostic studies on this patient from ED records and the medical chart Labs Test 12/30/24 09:36 12/30/24 09:32 Range/Units White Blood Count 17.6 H 4.4-10.8 10^3/uL Red Blood Count 5.12 4.5-5.90 10^6/uL Hemoglobin 16.4 13.5-17.5 g/dL Hematocrit 47.1 41.0-53.0 % Mean Corpuscular Volume 92.0 80.0-100.0 fL Mean Corpuscular Hemoglobin 32.0 28.0-32.0 pg Mean Corpuscular Hemoglobin Concent 34.8 32.0-36.0 g/dL Red Cell Distribution Width 13.8 11.8-14.3 % Platelet Count 249 140-450 10^3/uL Mean Platelet Volume 8.9 6.9-10.8 fL Neutrophils (%) (Auto) 89.1 H 37.0-80.0 % Lymphocytes (%) (Auto) 7.3 L 10.0-50.0 % Monocytes (%) (Auto) 3.3 0.0-12.0 % Eosinophils (%) (Auto) 0.1 0.0-7.0 % Basophils (%) (Auto) 0.2 0.0-2.0 % Neutrophils # (Auto) 15.7 H 1.6-8.6 10 ^3/uL Lymphocytes # (Auto) 1.3 0.4-5.4 10 ^3/uL Monocytes # (Auto) 0.6 0-1.3 10 ^3/uL Eosinophils # (Auto) 0 0-0.8 10 ^3/uL Basophils # (Auto) 0 0-0.2 10 ^3/uL Nucleated Red Blood Cells 0.1 % Prothrombin Time 11.2 9.3-11.8 sec Prothrombin Time INR 1.06 0.9-1.15 Activated Partial Thromboplast Time 30.4 24.5-34.5 SEC Sodium Level 134 L 136-145 mmol/L Potassium Level 5.3 H 3.5-5.1 mmol/L Chloride Level 100 98-107 mmol/L Carbon Dioxide Level 25 20-31 mmol/L Anion Gap 9 5-15 Blood Urea Nitrogen 43 H 9-23 mg/dL Creatinine 1.81 H 0.700-1.30 mg/dL Glomerular Filtration Rate Calc 38 >90 mL/min BUN/Creatinine Ratio 23.8 H 10.0-20.0 Serum Glucose 132 H 74-106 mg/dL Calcium Level 11.8 H 8.7-10.4 mg/dL Assessment/Plan Assessment/Plan acute lower gi bleed ct scan found constipation hold blood thinner for now IV hydration Transfuse Hgb less than 7 Hold anticoagulants Consider FFP or vitamin K if continued bleeding and low plts clr liquid diet for now Insert NGT for if with active UGI IV Protonix Consult GI Labs in a.m. pt/inr if not completed hgb q6h for 24 hours acute hypoxic resp failure pt found to be hypoxic 80% ordered cxr for now ordered abg fu results o2 to keep sats >92% acute leukocytosis can be from diarrhea ordered blood cultures fu results ordered ceftriaxone and flagyl for now acute diarrhea ordered cdiff ordered flagyl for now acute hyperkalemia ordered lokelde acute on chronic ron ordered iv hydration for now acute constipation found on ct scan ordered iv hydration ordered miralax ordered colace fen/ppx clr liquid ivf hold blood thinner with gi bleed scd plan admit to medicine Plan discussed with: Patient Date of Service: Dec 30, 2024 Billing Provider: ELÍAS HENDERSON DNP Common Visit Codes: [id number] INP/OBS CARE (HIGH) ELÍAS HENDERSON DNP Dec 30, 2024 14:34
[2024-12-30] MEDS ORDERED: NITROGLYCERIN 0.4 MG SL TAB SL PRN (15:45)
[2024-12-30] MEDS ORDERED: BISACODYL 10 MG RECT SUPP PR PRN (15:45)
[2024-12-30] MEDS: metroNIDAZOLE 500MG/100ML 100 ML IV ONE (17:50)
[2024-12-30] MEDS: cefTRIAXone 1GM/50ML D5W 50 ML IV ONE (17:50)
[2024-12-30] MEDS: SODIUM ZIRCONIUM CYCL 10 GM PAK PO ONE (17:50)
[2024-12-30] MEDS: BISACODYL 10 MG RECT SUPP PR ONE (18:36)
[2024-12-30] MEDS: SODIUM CHLORIDE 0.9% 1,000 ML IV SCH (18:37)
[2024-12-30 19:39] LABS: Creatinine, Urine 133.11 mg/dL (30.0-125.0)
[2024-12-30 20:00] VITALS: PULSE 105; RESP 20; O2SAT 95
[2024-12-30 22:00] LABS: Base Excess -0.1 mmol/L (-2.0-3.0)
[2024-12-30 22:45] VITALS: BP 123/78; PULSE 78; RESP 17; RESP 18; TEMP 97.6; O2SAT 100
[2024-12-30] MEDS: metroNIDAZOLE 500MG/100ML 100 ML IV SCH (22:52)
[2024-12-30] MEDS: METOPROLOL TARTRATE 25 MG TAB PO SCH (22:58)
[2024-12-30] MEDS: ONDANSETRON HCL 4 MG/2 ML VIAL IV PRN (23:22)
[2024-12-30] MEDS: MORPHINE SULFATE INJ 2 MG/ml SYRG IV PRN (23:23)
[2024-12-31] VITALS (7 sets, daily range): BP systolic 80–122; BP diastolic 42–64; PULSE 68–88; RESP 16–19; TEMP 97.7–98.3; O2SAT 95–100
[2024-12-31 07:10] LABS: Basophils # (auto) 0 10 ^3/uL (0-0.2); Basophils % (auto) 0.3 % (0.0-2.0); Eosinophils # (auto) 0.2 10 ^3/uL (0-0.8); Eosinophils % (auto) 1.3 % (0.0-7.0); Hematocrit 44.2 % (41.0-53.0); Hemoglobin 15.5 g/dL (13.5-17.5); Lymphocytes # (auto) 2.3 10 ^3/uL (0.4-5.4); Lymphocytes % (auto) 14.9 % (10.0-50.0); Mean Corpuscular Hemoglobin 31.8 pg (28.0-32.0); Mean Corpuscular Volume 90.9 fL (80.0-100.0); Monocytes % (auto) 6.6 % (0.0-12.0); Neutrophils % (auto) 76.9 % (37.0-80.0); Platelet Count (auto) 209 10^3/uL (140-450); Red Blood Cells 4.86 10^6/uL (4.5-5.90); Red Cell Distribution Width 14.1 % (11.8-14.3); White Blood Cell 15.6 10^3/uL (4.4-10.8)
[2024-12-31 07:42] LABS: Alanine Aminotransferase 15 U/L (7-40); Albumin 4.3 g/dL (3.2-4.8); Alkaline Phosphatase 78 U/L (46-116); Anion Gap 9 (5-15); Aspartate Aminotransferase 26 U/L (13-40); BUN/Creatinine Ratio 31.5 (10.0-20.0); Carbon Dioxide 24 mmol/L (20-31); Chloride 100 mmol/L (98-107); Glucose 80 mg/dL (74-106); Potassium 4.9 mmol/L (3.5-5.1); Total Protein 7.3 g/dL (5.7-8.2)
[2024-12-31 07:43] LABS: Bilirubin, Total 0.9 mg/dL (0.2-1.0)
[2024-12-31 07:44] LABS: Blood Urea Nitrogen 46 mg/dL (9-23); Calcium 11.1 mg/dL (8.7-10.4); Sodium 133 mmol/L (136-145)
[2024-12-31] MEDS ORDERED: POLYETHYLENE GLYCOL 17 GM PWDR PO ONE (08:45)
[2024-12-31] MEDS ORDERED: METOCLOPRAMIDE HCL 5MG/ml INJ 2ml VIAL IV ONE (08:45)
[2024-12-31] MEDS: POLYETHYLENE GLYCOL 17 GM PWDR PO PRN (10:06)
[2024-12-31] MEDS: cefTRIAXone 1GM/50ML D5W 50 ML IV SCH (10:06)
[2024-12-31] MEDS: LISINOPRIL 5 MG TAB PO SCH (10:07)
[2024-12-31] MEDS: EMPAGLIFLOZIN 10 MG TAB PO SCH (10:07)
[2024-12-31] MEDS: AMIODARONE HCL 200 MG TAB PO SCH (10:07)
--- NOTE | 2024-12-31 10:18 | DVHINCON2 ---
GI Consult Consult Note GI consult note Date of Consultation: 12/31/2024 Chief Complaint: Lower GI bleed Referring Physician: Anibal SALAZAR H&P: 79-year-old male with history of AFib, hypertension, CHF, and kidney disease presented to ER with symptoms of diarrhea and red blood in stool. Patient admits to having loose stool on and off. No melena. But patient has noticed red blood with wiping. No abdominal pain. Patient has had gradual weight loss. Started on Eliquis few months ago for AFib. No nausea or vomiting. Last colonoscopy 15-20 years ago, unsure about results Patient is complaining of ankle pain Past Medical History: AFib hypertension CHF, kidney disease Past Surgical History: Denies Social History: NO smoking, drinking ETOH and use of illegal drugs. Family History: Noncontributory Review of Systems: Constitutional: no fever, chill, weight loss HEENT: no eye pain, no hearing loss, no oral lesion, no scleral icterus Heart: no chest pain, no chest pressure Lung: no cough, no dyspnea with exertion Abdomen: see HPI Physical exam: General: NAD, AAOX3 Chest: lung melendez clear to auscultation Heart: RRR, no murmur Abdomen: non-distended, no tenderness to palpation, +BS Labs: Labs Test 12/31/24 05:01 12/30/24 21:32 12/30/24 19:18 12/30/24 09:36 Range/Units White Blood Count 15.6 H 4.4-10.8 10^3/uL Red Blood Count 4.86 4.5-5.90 10^6/uL Hemoglobin 15.5 13.5-17.5 g/dL Hematocrit 44.2 41.0-53.0 % Mean Corpuscular Volume 90.9 80.0-100.0 fL Mean Corpuscular Hemoglobin 31.8 28.0-32.0 pg Mean Corpuscular Hemoglobin Concent 35.0 32.0-36.0 g/dL Red Cell Distribution Width 14.1 11.8-14.3 % Platelet Count 209 140-450 10^3/uL Mean Platelet Volume 9.6 6.9-10.8 fL Neutrophils (%) (Auto) 76.9 37.0-80.0 % Lymphocytes (%) (Auto) 14.9 10.0-50.0 % Monocytes (%) (Auto) 6.6 0.0-12.0 % Eosinophils (%) (Auto) 1.3 0.0-7.0 % Basophils (%) (Auto) 0.3 0.0-2.0 % Neutrophils # (Auto) 12.0 H 1.6-8.6 10 ^3/uL Lymphocytes # (Auto) 2.3 0.4-5.4 10 ^3/uL Monocytes # (Auto) 1.0 0-1.3 10 ^3/uL Eosinophils # (Auto) 0.2 0-0.8 10 ^3/uL Basophils # (Auto) 0 0-0.2 10 ^3/uL Nucleated Red Blood Cells 0.0 % Sodium Level 133 L 136-145 mmol/L Potassium Level 4.9 3.5-5.1 mmol/L Chloride Level 100 98-107 mmol/L Carbon Dioxide Level 24 20-31 mmol/L Anion Gap 9 5-15 Blood Urea Nitrogen 46 H 9-23 mg/dL Creatinine 1.46 H 0.700-1.30 mg/dL Glomerular Filtration Rate Calc 49 >90 mL/min BUN/Creatinine Ratio 31.5 H 10.0-20.0 Serum Glucose 80 74-106 mg/dL Hemoglobin A1c 6.0 H <5.7 % A1C Calcium Level 11.1 H 8.7-10.4 mg/dL Total Bilirubin 0.9 0.2-1.0 mg/dL Aspartate Amino Transferase (AST) 26 13-40 U/L Alanine Aminotransferase (ALT) 15 7-40 U/L Alkaline Phosphatase 78 46-116 U/L Total Protein 7.3 5.7-8.2 g/dL Albumin 4.3 3.2-4.8 g/dL Thyroid Stimulating Hormone (TSH) 2.31 0.55-4.78 uIU/mL Blood Gas Specimen Type Arterial Blood Gas Sample Site Right radial Blood Gas Patient Temperature 37.0 Arterial Blood Date Drawn Arterial Blood pH 7.540 H 7.350-7.450 Arterial Blood Partial Pressure CO2 24.4 L 35.0-48.0 mmHg Arterial Blood Partial Pressure O2 120.6 H 83.0-108.0 mmHg Arterial Blood HCO3 20.4 L 21.0-28.0 mmol/L Arterial Blood Oxygen Saturation 98.7 H 94.0-98.0 % Arterial Blood Base Excess -0.1 -2.0-3.0 mmol/L Arterial Blood Oxyhemoglobin 97.5 94.0-98.0 % Arterial Blood Carboxyhemoglobin 0.6 0.5-1.5 % Arterial Blood Methemoglobin 0.6 0.0-1.5 % Abner Test Modified Blood Gas Total Hemoglobin 15.80 13.5-17.5 g/dL Blood Gas Liter Flow 1.00 Blood Gas Modality Nasal cannula FiO2 % 24.0 Urine Creatinine 133.11 H 30.0-125.0 mg/dL Urine Sodium 29 L 40-220 mmol/L Prothrombin Time 11.2 9.3-11.8 sec Prothrombin Time INR 1.06 0.9-1.15 Activated Partial Thromboplast Time 30.4 24.5-34.5 SEC Imaging: CT abdomen pelvis IMPRESSION: 1. No acute abdominal or pelvic finding. 2. Stool in the rectum suggesting fecal retention. 3. Nonobstructive bilateral intrarenal calculi. Assessment: Hematochezia Acute diarrhea Fecal retention History of AFib on Eliquis Plan: Discussed with Dr. Jin Monitor labs Colace and MiraLax Stool for C diff collected, results pending Continue Flagyl Clear liquid diet Hold blood thinners Possible colonoscopy discussed with patient pending stool test results, patient feels like he can not do the bowel prep at this time with how he is feeling We will continue to monitor the patient Plan discussed with patient and RN Thank you for this consult Date of Service: Dec 31, 2024 Billing Provider: ERNESTO AVILA Common Visit Codes: CONSULT ONLY Consultation Codes: [id number] CONSULT <60MIN ERNESTO AVILA Dec 31, 2024 10:18
--- NOTE | 2024-12-31 11:04 | DVH ---
INDICATION: PNA TECHNIQUE: Frontal view of the chest. COMPARISON: XY CHEST XRAY 1 VIEW on DOS: 11/21/24 FINDINGS: . The heart and mediastinal contours are grossly unremarkable. There is no evidence of pleural disea se. The lungs are clear. The bony structures of the chest are intact without fracture. IMPRESSION: 1. No evidence of acute disease.
[2024-12-31 11:27] LABS: COVID19 ANTIGEN SOFIA FIA NEGATIVE (NEGATIVE); Rapid Influenza A Negative (Negative); Rapid Influenza B Negative (Negative)
--- NOTE | 2024-12-31 15:04 | DVHPNRES ---
Progress Note Date Seen: Dec 31, 2024 Resident Creating Document: JESSICA WARD RESIDENT Medical Necessity Reason Pt with a Central, PICC or Fol: No Subjective Review of Systems Patient is 79 years old male with a history of atrial fibrillation, hypertension, CHF was brought in by the daughter due to bloody stool. As per daughter patient was having constipation but lately patient has been having bloody stool last 2 days especially when wiping. As per daughter patient was having hard time passing stool with a thick stool coming out with the associated pain during defecation. Patient denied any fever, any acute joint pain or swelling or chest pain no shortness a breath. She lab workup revealed leukocytosis with WBC 17.6, mild hyponatremia sodium 123, hyperkalemia potassium 5.3, serum creatinine elevated 1.81, BUN 43. HGB A1c 6.0, calcium 11..1> 11.8, PTH-81.4. Negative for influenza type A and B and COVID-19. Uterine analysis revealed-leukocyte esterase 3+, WBC 257, CT abdomen revealed Stool in the rectum suggesting fecal retention. Nonobstructive bilateral intrarenal calculi. CT CS no evidence of acute disease. PMH-atrial fibrillation, hypertension, CHF, EF 40% PSH- none Allergy- NKDA Personal History/ Social History- lives with daughter, smoker Patient was seen today at the bedside. Cardiovascular- deny acute chest pain or shortness of breath or cough or palpitation Respiratory denies cough or short of breath or wheezing Gastrointestinal- denies nausea or vomiting Musculoskeletal-denies acute joint swelling or tenderness or redness Neurological- denies acute dysarthria, dysphagia, change in vision Psychiatry- denies depression or SI or HI Skin- denies acute rash or purpura Patient was seen today for clinical evaluation. Labs and chart reviewed. Patient with leukocytosis. YONNY -revealed impacted fecal stool, ordered tap water enema. CT abdomen revealed Stool in the rectum suggesting fecal retention. Nonobstructive bilateral intrarenal calculi. Pending urine CS Objective vital signs Vital Sign Date Time Temp Pulse Resp B/P (MAP) Pulse Ox O2 Delivery O2 Flow Rate FiO2 12/31/24 12:30 98.1 77 16 111/42 (65) 100 98.1 12/31/24 08:10 Nasal Cannula* 1 24 Total Intake and Output 12/30/24 12/30/24 12/31/24 15:00 23:00 07:00 Intake Total 400 ml 300 ml Output Total 300 ml Balance 400 ml 0 ml medications Current Medications Medications Dose Ordered Sig/Vanessa Route Start Time Stop Time Status Last Admin Dose Admin Sodium Chloride 1,000 ml @ 100 mls/hr Q10H IV 12/30/24 15:45 12/31/24 10:00 100 MLS/HR Ondansetron HCl 4 mg Q4HP PRN IV 12/30/24 15:45 12/30/24 23:22 4 MG Docusate Sodium 100 mg BIDPRN PRN PO 12/30/24 15:45 Morphine Sulfate 2 mg Q4HPRN PRN IV 12/30/24 15:45 12/31/24 10:34 2 MG Nitroglycerin 0.4 mg Q5MINP PRN SL 12/30/24 15:45 Ceftriaxone Sodium 50 ml @ 100 mls/hr DAILY@09 IV 12/31/24 09:00 12/31/24 10:06 100 MLS/HR Metronidazole 100 ml @ 100 mls/hr Q8HR IV 12/30/24 22:00 12/30/24 22:52 100 MLS/HR Bisacodyl 10 mg DAILYP PRN OH 12/30/24 15:45 Amiodarone HCl 200 mg DAILY PO 12/31/24 10:00 12/31/24 10:07 200 MG Empaglifozin 10 mg DAILY PO 12/31/24 10:00 12/31/24 10:07 10 MG Lisinopril 5 mg DAILY PO 12/31/24 10:00 12/31/24 10:07 5 MG Metoprolol Tartrate 12.5 mg BID PO 12/30/24 22:00 12/31/24 10:07 12.5 MG Polyethylene Glycol 17 gm DAILYPRN PRN PO 12/31/24 08:45 12/31/24 10:06 17 GM Examination General examination- HEENT- PEERLA, no acute nasal discharge Cardiovascular- S1-S2 audible, rate and rhythm regular, no murmur Respiratory- CTAB, no wheeze or rhonchi Gastrointestinal-nontender, bowel sound+. Nondistended Musculoskeletal-no acute joint swelling or tenderness or redness Lower extremity- Neurological- cranial nerves intact, no acute dysarthria or dysphagia Psychiatry- denies depression or SI or HI Skin- no acute rash or purpura laboratory and microbiology Laboratory Tests 12/31/24 05:01 Test 12/31/24 05:01 Range/Units Serum Glucose 80 74-106 mg/dL Problem List/Assessment/Plan Problem List/Assessment/Plan Assessment and plan # suspected sepsis likely due to UTI -pending urine culture -continue ceftriaxone 1 g IV daily -continue IV fluid as prescribed # bleeding per rectum likely due to hemorrhoids -patient was seen by share holder, recommended colonoscopy -continue ceftriaxone and Flagyl as prescribed -continue IV fluid as prescribed # suspected primary hyperparathyroidism -serum calcium 11.8, PTH intact 81.4 -pending parathyroid scan -continue current management # TOMASA likely due to VMN -continue IV hydration as prescribed # acute complicated cystitis with end-organ damage -urinalysis leukocyte esterase 3+, WBC 257 -continue ceftriaxone 1 g IV daily -pending urine CS # atrial fibrillation, rate controlled -amiodarone 200 mg p.o. daily # hypertension -metoprolol 12.5 mg p.o. b.i.d. -lisinopril 5 mg p.o. daily #HFmEF- -continue metoprolol 12.5 mg p.o. b.i.d. -continue lisinopril 5 mg p.o. daily -Jardiance 10 mg p.o. daily # hyperkalemia potassium 5.3 -resolved -continue current management, repeat BNP # hyponatremia mild, -continue IV fluid as prescribed Goals of care, Code status ; discussed with >15 minutes PUD prophylaxis: Pantoprazole DVT prophylaxis: patient Came with the per rectal bleeding Plan discussed with Dr. Sanon , nursing staff, Total time spent on patient evaluation, chart review, assessment and plan, discussion discussion >35 minutes Plan discussed with: Patient, Daughter, Other (RN) My Orders My Orders Orders - JESSICA WARD RESIDENT Procedure Category Date Status Time Magnesium LAB 01/01/25 Verified 04:00 Urinalysis LAB 12/31/24 Logged 08:36 Drug Screen LAB 12/31/24 Logged 08:36 Chest Portable XY 12/31/24 Resulted 08:38 Polyethylene Glycol PHA 12/31/24 In Process 17g Powder (Miralax 08:45 Tap Water Enema ORDERS 12/31/24 Transmitted 09:44 * Dietary Consult CONS 12/31/24 Transmitted 10:05 Date of Service: Dec 31, 2024 Billing Provider: GIORGI BUSTILLO MD Common Visit Codes: [id number] INP/OBS CARE(HIGH) JESSICA WARD RESIDENT Dec 31, 2024 15:04 GIORGI BUSTILLO MD Jan 05, 2025 09:39
[2024-12-31 15:28] LABS: Urine Bacteria None Seen /hpf (None Seen); Urine Blood 2+ /uL (Negative); Urine Clarity Turbid (Clear); Urine Color Yellow (Yellow); Urine Protein, UAD 1+ (Negative); Urine Specific Gravity 1.018 (1.001-1.035); Urine Squamous Epithelial Cell None Seen /hpf (<5); Urine Urobilinogen Normal (Negative); Urine WBC 257 /HPF (0-3); Urine WBC Clumps PRESENT /hpf (None Seen); Urine pH 6.5 (5.0-9.0)
[2024-12-31] MEDS: PANTOPRAZOLE 40 MG/10 ML VIAL INJ IV ONE (15:52)
[2024-12-31] MEDS: ACETAMINOPHEN 325 MG TAB PO PRN (22:37)
[2024-12-31] MEDS: SODIUM CHLORIDE 0.9% 1,000 ML IV ONE (22:38)
[2025-01-01] VITALS (8 sets, daily range): BP systolic 93–148; BP diastolic 51–103; PULSE 77–105; RESP 17–20; TEMP 97.8–98.4; O2SAT 92–99
[2025-01-01] MEDS: DOCUSATE SOD 100 MG CAP PO PRN (05:05)
[2025-01-01 07:02] LABS: Basophils # (auto) 0 10 ^3/uL (0-0.2); Basophils % (auto) 0.4 % (0.0-2.0); Eosinophils # (auto) 0.2 10 ^3/uL (0-0.8); Eosinophils % (auto) 1.2 % (0.0-7.0); Hemoglobin 13.7 g/dL (13.5-17.5); Lymphocytes # (auto) 1.8 10 ^3/uL (0.4-5.4); Lymphocytes % (auto) 14.3 % (10.0-50.0); Mean Corpuscular Hemoglobin 31.6 pg (28.0-32.0); Mean Corpuscular Hgb Conc. 34.4 g/dL (32.0-36.0); Mean Corpuscular Volume 91.8 fL (80.0-100.0); Monocytes # (auto) 0.8 10 ^3/uL (0-1.3); Monocytes % (auto) 6.1 % (0.0-12.0); Neutrophils # (auto) 9.6 10 ^3/uL (1.6-8.6); Platelet Count (auto) 179 10^3/uL (140-450); Red Blood Cells 4.36 10^6/uL (4.5-5.90); Red Cell Distribution Width 14.1 % (11.8-14.3); White Blood Cell 12.4 10^3/uL (4.4-10.8)
[2025-01-01 07:05] LABS: Alanine Aminotransferase 13 U/L (7-40); Albumin 3.5 g/dL (3.2-4.8); Alkaline Phosphatase 64 U/L (46-116); Anion Gap 8 (5-15); Aspartate Aminotransferase 23 U/L (13-40); BUN/Creatinine Ratio 21.6 (10.0-20.0); Blood Urea Nitrogen 24 mg/dL (9-23); Carbon Dioxide 23 mmol/L (20-31); Chloride 105 mmol/L (98-107); Glucose 81 mg/dL (74-106); Potassium 4.2 mmol/L (3.5-5.1); Sodium 136 mmol/L (136-145); Total Protein 6.2 g/dL (5.7-8.2)
[2025-01-01 07:06] LABS: Bilirubin, Total 1.1 mg/dL (0.2-1.0)
[2025-01-01 07:09] LABS: Phosphorus 2.1 mg/dL (2.4-5.1)
[2025-01-01] MEDS: PANTOPRAZOLE 40 MG/10 ML VIAL INJ IV SCH (09:05)
--- NOTE | 2025-01-01 09:16 | DVHPNRES ---
Progress Note Date Seen: Jan 01, 2025 Resident Creating Document: JESSICA WARD RESIDENT Medical Necessity Reason Pt with a Central, PICC or Fol: No Subjective Review of Systems Patient is 79 years old male with a history of atrial fibrillation, hypertension, CHF was brought in by the daughter due to bloody stool. As per daughter patient was having constipation but lately patient has been having bloody stool last 2 days especially when wiping. As per daughter patient was having hard time passing stool with a thick stool coming out with the associated pain during defecation. Patient denied any fever, any acute joint pain or swelling or chest pain no shortness a breath. She lab workup revealed leukocytosis with WBC 17.6, mild hyponatremia sodium 123, hyperkalemia potassium 5.3, serum creatinine elevated 1.81, BUN 43. HGB A1c 6.0, calcium 11..1> 11.8, PTH-81.4. Negative for influenza type A and B and COVID-19. Uterine analysis revealed-leukocyte esterase 3+, WBC 257, CT abdomen revealed Stool in the rectum suggesting fecal retention. Nonobstructive bilateral intrarenal calculi. CT CS no evidence of acute disease. PMH-atrial fibrillation, hypertension, CHF, EF 40% PSH- none Allergy- NKDA Personal History/ Social History- lives with daughter, smoker Patient was seen today at the bedside. Cardiovascular- deny acute chest pain or shortness of breath or cough or palpitation Respiratory denies cough or short of breath or wheezing Gastrointestinal- denies nausea or vomiting Musculoskeletal-denies acute joint swelling or tenderness or redness Neurological- denies acute dysarthria, dysphagia, change in vision Psychiatry- denies depression or SI or HI Skin- denies acute rash or purpura Patient was seen today for clinical evaluation. Labs and chart reviewed. WBC trending down WBC 17.6> 15.6> 12.4. Serum creatinine improving 1.81> 1.46> 1.11. Urinalysis revealed UTI with nitrite 1+, UA leukocyte esterase 3+, WBC 257. Patient on ceftriaxone 1 g IV daily. Sestamibi scan/ Nuclear Parathyroid Scanning Negative for Parathyroid adenoma. Patient was seen by Gastroenterology, recommendation reviewed and appreciated. GI scheduled for sigmoidoscopy with biopsy with MAC sedation on 01/02/2025. Objective vital signs Vital Sign Date Time Temp Pulse Resp B/P (MAP) Pulse Ox O2 Delivery O2 Flow Rate FiO2 01/01/25 08:35 98.1 81 19 135/103 (114) 99 98.1 12/31/24 20:00 Nasal Cannula* 1 24 Total Intake and Output 12/31/24 12/31/24 01/01/25 15:00 23:00 07:00 Intake Total 50 ml 200 ml 2500 ml Output Total 650 ml 1000 ml Balance 50 ml -450 ml 1500 ml medications Current Medications Medications Dose Ordered Sig/Vanessa Route Start Time Stop Time Status Last Admin Dose Admin Sodium Chloride 1,000 ml @ 100 mls/hr Q10H IV 12/30/24 15:45 12/31/24 21:40 100 MLS/HR Ondansetron HCl 4 mg Q4HP PRN IV 12/30/24 15:45 12/30/24 23:22 4 MG Docusate Sodium 100 mg BIDPRN PRN PO 12/30/24 15:45 01/01/25 05:05 100 MG Morphine Sulfate 2 mg Q4HPRN PRN IV 12/30/24 15:45 01/01/25 05:11 2 MG Nitroglycerin 0.4 mg Q5MINP PRN SL 12/30/24 15:45 Ceftriaxone Sodium 50 ml @ 100 mls/hr DAILY@09 IV 12/31/24 09:00 12/31/24 10:06 100 MLS/HR Metronidazole 100 ml @ 100 mls/hr Q8HR IV 12/30/24 22:00 01/01/25 05:06 100 MLS/HR Bisacodyl 10 mg DAILYP PRN IA 12/30/24 15:45 Amiodarone HCl 200 mg DAILY PO 12/31/24 10:00 12/31/24 10:07 200 MG Empaglifozin 10 mg DAILY PO 12/31/24 10:00 12/31/24 10:07 10 MG Lisinopril 5 mg DAILY PO 12/31/24 10:00 12/31/24 10:07 5 MG Metoprolol Tartrate 12.5 mg BID PO 12/30/24 22:00 12/31/24 10:07 12.5 MG Polyethylene Glycol 17 gm DAILYPRN PRN PO 12/31/24 08:45 12/31/24 10:06 17 GM Pantoprazole Sodium 40 mg DAILY IV 01/01/25 10:00 Acetaminophen 650 mg Q6HP PRN PO 12/31/24 22:15 12/31/24 22:37 650 MG Examination General examination-, awake, conversant HEENT- PEERLA, no acute nasal discharge Cardiovascular- S1-S2 audible, rate and rhythm regular, no murmur Respiratory- CTAB, no wheeze or rhonchi Gastrointestinal-nontender, bowel sound+. Nondistended Musculoskeletal-no acute joint swelling or tenderness or redness Lower extremity- no leg edema Neurological- cranial nerves intact, no acute dysarthria or dysphagia Psychiatry- denies depression or SI or HI Skin- no acute rash or purpura laboratory and microbiology Laboratory Tests 01/01/25 06:05 Test 01/01/25 06:05 Range/Units Serum Glucose 81 74-106 mg/dL Problem List/Assessment/Plan Problem List/Assessment/Plan Assessment and plan-patient's constipation with fecal impaction has improved with the treatment, patient had bowel movement. Patient was scheduled for sigmoidoscopy tomorrow on 01/02/2025. Patient on ceftriaxone IV for UTI. Patient can be discharged tomorrow after colonoscopy if hemodynamically stable.S estamibi scan/ Nuclear Parathyroid Scanning Negative for Parathyroid adenoma. # suspected sepsis likely due to UTI -pending urine culture -continue ceftriaxone 1 g IV daily -continue IV fluid as prescribed # hematochezia likely due to external hemorrhoids/?proctitis -hold blood thinner at this moment -patient was scheduled for sigmoidoscopy tomorrow on 01/02/2025 # acute diarrhea, following fecal retention # fecal retention -continue current management -avoid dehydration # suspected primary hyperparathyroidism -Sestamibi scan/ Nuclear Parathyroid Scanning Negative for Parathyroid adenoma. -serum calcium 11.8, PTH intact 81.4 -pending parathyroid scan -continue current management # acute cystitis with end-organ damage -urinalysis nitrite 1+, leukocyte esterase 3+, WBC 257, -continue ceftriaxone 1 g IV daily -pending urine CS # TOMASA likely due to VMN -continue IV hydration as prescribed # atrial fibrillation, rate controlled -amiodarone 200 mg p.o. daily # hypertension -metoprolol 12.5 mg p.o. b.i.d. -lisinopril 5 mg p.o. daily #HFmEF- -continue metoprolol 12.5 mg p.o. b.i.d. -continue lisinopril 5 mg p.o. daily -Jardiance 10 mg p.o. daily # hyperkalemia potassium 5.3 -resolved -continue current management, repeat BNP # hyponatremia mild, -continue IV fluid as prescribed Goals of care, Code status ; discussed with >15 minutes PUD prophylaxis: Pantoprazole DVT prophylaxis: Blood thinner on hold due to per rectal bleeding Plan discussed with Dr. Sanon , nursing staff, Total time spent on patient evaluation, chart review, assessment and plan, discussion discussion >35 minutes Plan discussed with: Patient, Daughter (RN), Other (RN) My Orders My Orders Orders - JESSICA WARD Procedure Category Date Status Time Tap Water Enema ORDERS 12/31/24 Transmitted 09:44 * Dietary Consult CONS 12/31/24 Transmitted 10:05 Pantoprazole PHA 01/01/25 In Process (Protonix) 10:00 Urine Bacterial KYAW 12/31/24 In Process Culture 16:48 Parathyroid NM 12/31/24 Logged 17:06 Stool Occult Blood LAB 01/01/25 Logged 06:45 B-Type Natriuretic LAB 01/01/25 In Process Peptide 06:54 Date of Service: Jan 01, 2025 Billing Provider: GIORGI BUSTILLO MD Common Visit Codes: [id number] INP/OBS CARE(HIGH) JESSICA WARD Jan 01, 2025 09:16 GIORGI BUSTILLO MD Jan 04, 2025 15:05
[2025-01-01] MEDS: DULoxetine HCL 30 MG CAP PO ONE (14:07)
[2025-01-01] MEDS: POLYETHYLENE GLYCOL 17 GM PWDR PO ONE ×2 (14:07→22:34)
--- NOTE | 2025-01-01 14:42 | DVH ---
EXAM: NM PARATHYROID DATE OF SERVICE: 01/01/2025 10:13 AM JESSICA WARD RESIDENT REASON FOR EXAM: suspected primary hyperparathyroidism TECHNIQUE: Following the intravenous administration of 22.0 mCi of Tc-99m Sestamibi, planar images a t 15 minutes and 3 hours were obtained from the vertex to the chest. COMPARISON: None FINDINGS: 15 minutes post injection, the thyroid gland demonstrates diffuse, homogeneous uptake. 3 hours post injection, there is complete washout of radiotracer from the thyroid gland. No focal res idual uptake to suggest a parathyroid adenoma. IMPRESSION: 1. Normal exam. No scintigraphic evidence of a parathyroid adenoma.
--- NOTE | 2025-01-01 14:49 | DVHPN2 ---
Subjective No changes Changes from previous H/P or p: No Changes Eyes: No Pain, No Vision change, No Conjunctivae inflammation, No Eyelid inflammation, No Other, No Redness ENT: No Ear pain, No Ear discharge, No Nose pain, No Nose discharge, No Nose congestion, No Mouth pain, No Mouth swelling, No Throat pain, No Throat swelling, No Other Cardiovascular: No Chest Pain, No Palpitations, No Orthopnea, No Paroxysmal Noc. Dyspnea, No Edema, No Lt Headedness, No Other Respiratory: No Cough, No Dry, No Shortness of breath, No SOB with excertion, No Wheezing, No Hemoptysis, No Pleuritic Pain, No Sputum, No Other Gastrointestinal: No Nausea, No Vomiting; Abdominal Pain; No Diarrhea, No Constipation, No Melena, No Hematochezia, No Other Genitourinary: No Dysuria, No Frequency, No Incontinence, No Hematuria, No Retention, No Other Musculoskeletal: No other, No neck pain, No shoulder pain, No arm pain, No back pain, No hand pain, No leg pain, No foot pain Skin: No Rash, No Lesions, No Jaundice, No Bruising, No Other Objective Vitals Vital Signs Date Time Temp Pulse Resp B/P (MAP) Pulse Ox O2 Delivery O2 Flow Rate FiO2 01/01/25 13:19 88 16 123/73 01/01/25 13:00 98.4 96 98.4 01/01/25 08:00 Nasal Cannula* 1 24 Intake/Output Intake and Output 01/01/25 07:00 Intake Total 2750 ml Output Total 1650 ml Balance 1100 ml Intake Oral 900 ml IV Total 1850 ml Output Urine Total 1650 ml General Appearance: Alert, Oriented X3, No acute distress Lungs: Clear to auscultation, Normal air movement, Other Cardiovascular: Regular rate, Normal S1, Normal S2, No murmurs, Gallops, Rubs, Other Abdomen: Normal bowel sounds, Soft, No tenderness, No hepatospenomegaly, No masses, Other Medications Current Medications Medications Dose Ordered Sig/Vanessa Route Start Time Stop Time Status Last Admin Dose Admin Sodium Chloride 1,000 ml @ 100 mls/hr Q10H IV 12/30/24 15:45 12/31/24 21:40 100 MLS/HR Ondansetron HCl 4 mg Q4HP PRN IV 12/30/24 15:45 12/30/24 23:22 4 MG Docusate Sodium 100 mg BIDPRN PRN PO 12/30/24 15:45 01/01/25 05:05 100 MG Morphine Sulfate 2 mg Q4HPRN PRN IV 12/30/24 15:45 01/01/25 12:49 2 MG Nitroglycerin 0.4 mg Q5MINP PRN SL 12/30/24 15:45 Ceftriaxone Sodium 50 ml @ 100 mls/hr DAILY@09 IV 12/31/24 09:00 01/01/25 09:01 100 MLS/HR Metronidazole 100 ml @ 100 mls/hr Q8HR IV 12/30/24 22:00 01/01/25 14:06 100 MLS/HR Bisacodyl 10 mg DAILYP PRN CA 12/30/24 15:45 Amiodarone HCl 200 mg DAILY PO 12/31/24 10:00 01/01/25 09:08 200 MG Empaglifozin 10 mg DAILY PO 12/31/24 10:00 01/01/25 09:08 10 MG Lisinopril 5 mg DAILY PO 12/31/24 10:00 01/01/25 09:09 5 MG Metoprolol Tartrate 12.5 mg BID PO 12/30/24 22:00 01/01/25 09:17 12.5 MG Pantoprazole Sodium 40 mg DAILY IV 01/01/25 10:00 01/01/25 09:05 40 MG Acetaminophen 650 mg Q6HP PRN PO 12/31/24 22:15 12/31/24 22:37 650 MG Polyethylene Glycol 17 gm BID PO 01/01/25 22:00 Duloxetine HCl 30 mg BID PO 01/01/25 22:00 Laboratory Results Laboratory Tests 01/01/25 06:05 Chemistry Test 01/01/25 06:05 Albumin 3.5 g/dL (3.2-4.8) Calcium Level 10.0 mg/dL (8.7-10.4) Magnesium Level 2.0 mg/dL (1.6-2.6) Phosphorus Level 2.1 mg/dL (2.4-5.1) L Total Protein 6.2 g/dL (5.7-8.2) Cardiac Markers Test 01/01/25 06:05 B-Type Natriuretic Peptide 135.22 pg/mL (0-100) LFT Test 01/01/25 06:05 Alanine Aminotransferase (ALT) 13 U/L (7-40) Alkaline Phosphatase 64 U/L (46-116) Aspartate Amino Transferase (AST) 23 U/L (13-40) Total Bilirubin 1.1 mg/dL (0.2-1.0) H Urinalysis Test 12/30/24 19:18 Urine Color Yellow (Yellow) Urine Clarity Turbid (Clear) H Urine pH 6.5 (5.0-9.0) Urine Specific [place] 1.018 (1.001-1.035) Urine Protein 1+ (Negative) H Urine Ketones Negative (Negative) Urine Blood 2+ /uL (Negative) H Urine Nitrite 1+ (Negative) H Urine Bilirubin Negative (Negative) Urine Urobilinogen Normal mg/dL (Negative) Urine Leukocyte Esterase 3+ /uL (Negative) Urine RBC 22 /hpf (0 - 3) Urine WBC Clumps Present /hpf (None Seen) Urine Microscopic WBC 257 /HPF (0-3) H Urine Squamous Epithelial Cells None seen /hpf (<5) Urine Bacteria None seen /hpf (None Seen) Urine Creatinine 133.11 mg/dL (30.0-125.0) H Urine Sodium 29 mmol/L (40-220) L Urine Glucose 4+ mg/dL (Normal) H Microbiology Microbiology Date/Time Source Procedure Growth Status 12/31/24 20:58 Voided Urine Urine Culture - Preliminary Resulted 12/30/24 19:19 Stool Clostridium difficile Toxin Assay - Final Complete Labs and/or images reviewed: Labs reviewed by me, Image(s) reviewed by me Assessment/Plan Assessment/Plan Hematochezia Acute diarrhea Fecal retention History of AFib on Eliquis Plan Discussed with Dr. Jin Scheduled for sigmoidoscopy with biopsy with MAC sedation 01/02/2025 Discussed risks benefits and alternatives of procedure and sedation, patient understands and agrees Continue clear liquid diet Hold blood thinner Plan discussed with: Patient, Other (RN and Dr. Sanon) My Orders Orders - ERNESTO AVILA Procedure Category Date Status Time Hydrocortisone PHA 01/01/25 Verified Suppository 14:45 Obtain Consent For: ORDERS 01/01/25 Verified 14:43 Npo (Nothing By DIET 01/01/25 Verified Mouth) Diet Dinner Obtain Consent For YVES 01/01/25 Verified Anesthesia 14:43 Fleet Enema Adult PHA 01/02/25 Verified 05:45 Date of Service: Jan 01, 2025 Billing Provider: ERNESTO AVILA Common Visit Codes: [id number] INP/OBS CARE(HIGH) ERNESTO AVILA Jan 01, 2025 14:49
[2025-01-01 15:47] LABS: Opiate Scree,Urine Neg (NEGATIVE)
[2025-01-01 15:51] LABS: Amphetamine Screen, Urine Neg (NEGATIVE); Barbiturate Scree,Urine Neg (NEGATIVE); Benzodiazephine Screen, Urine Neg (NEGATIVE); Cannabinoid Screen, Urine Neg (NEGATIVE); Cocaine Screen, Urine Neg (NEGATIVE); Phencyclidine Screen, Urine Neg (NEGATIVE)
[2025-01-01] MEDS: HYDROCORTISONE ACET 25 MG RECTAL SUPP PR ONE (17:39)
[2025-01-01] MEDS ORDERED: POLYETHYLENE GLYCOL 17 GM PWDR PO SCH (22:00)
[2025-01-01] MEDS: DULoxetine HCL 30 MG CAP PO SCH (22:34)
[2025-01-02] VITALS (8 sets, daily range): BP systolic 110–158; BP diastolic 67–91; PULSE 75–91; RESP 18–20; TEMP 97.7–98.7; O2SAT 97–99
[2025-01-02] MEDS: FLEET ENEMA(ADULT) 135 ML PR ONE (05:41)
[2025-01-02 06:31] LABS: Basophils # (auto) 0.1 10 ^3/uL (0-0.2); Basophils % (auto) 0.8 % (0.0-2.0); Eosinophils # (auto) 0.1 10 ^3/uL (0-0.8); Eosinophils % (auto) 0.4 % (0.0-7.0); Hematocrit 45.6 % (41.0-53.0); Hemoglobin 15.7 g/dL (13.5-17.5); Lymphocytes # (auto) 1.3 10 ^3/uL (0.4-5.4); Lymphocytes % (auto) 8.1 % (10.0-50.0); Mean Corpuscular Hemoglobin 32.1 pg (28.0-32.0); Mean Corpuscular Hgb Conc. 34.3 g/dL (32.0-36.0); Mean Corpuscular Volume 93.5 fL (80.0-100.0); Monocytes # (auto) 0.7 10 ^3/uL (0-1.3); Monocytes % (auto) 4.5 % (0.0-12.0); Neutrophils # (auto) 13.5 10 ^3/uL (1.6-8.6); Neutrophils % (auto) 86.2 % (37.0-80.0); Platelet Count (auto) 186 10^3/uL (140-450); Red Blood Cells 4.88 10^6/uL (4.5-5.90); Red Cell Distribution Width 13.9 % (11.8-14.3); White Blood Cell 15.6 10^3/uL (4.4-10.8)
[2025-01-02 06:46] LABS: Anion Gap 10 (5-15); Carbon Dioxide 22 mmol/L (20-31); Chloride 105 mmol/L (98-107); Potassium 4.1 mmol/L (3.5-5.1); Sodium 137 mmol/L (136-145)
[2025-01-02 06:52] LABS: BUN/Creatinine Ratio 13.9 (10.0-20.0); Blood Urea Nitrogen 14 mg/dL (9-23); Glucose 83 mg/dL (74-106)
[2025-01-02 07:00] LABS: Calcium 10.6 mg/dL (8.7-10.4)
[2025-01-02] MEDS: POLYETHYLENE GLYCOL 17 GM PWDR PO SCH (09:16)
[2025-01-02] MEDS ORDERED: MIDAZOLAM HCL 2MG/2ML 2ml VIAL (1mg/ml) ONE (15:10)
[2025-01-02] MEDS ORDERED: PROPOFOL 10 MG/ML 20 ML IV ONE (15:10)
[2025-01-02] MEDS ORDERED: GLYCOPYRROLATE 0.2 MG/ML 1ML VIAL ONE (15:11)
[2025-01-02] MEDS ORDERED: ONDANSETRON HCL 4 MG/2 ML VIAL ONE (15:11)
--- NOTE | 2025-01-02 16:04 | DVHOP2 ---
Operative Report DATE OF OPERATION: 01/02/25 PROCEDURE: Colonoscopy cold biopsy polypectomy. PREOPERATIVE INDICATION: The patient is a 79 -year-old male undergoing colonoscopy for evaluation of rectal bleeding POSTOPERATIVE DIAGNOSES: 1. Patient had an area of stercoral ulceration in the anorectum likely due to fecal impaction from which biopsies were obtained 2. There was a 2 mm benign-appearing descending colon polyp that was seen and removed by cold biopsy forceps 3. There was a 2 mm benign-appearing transverse colon polyp that was seen and removed by cold biopsy forceps 4. Mild sigmoid diverticular disease 5. 1+ internal hemorrhoids with one pocket being slightly thrombosed otherwise essentially completely normal colonoscopy examination up to the cecum PROCEDURE PERFORMED BY: Yakov Jin M.D. SCOPE: Olympus videocolonoscope. ASA CLASS: 3 PREOPERATIVE MEDICATIONS: Dr Isaiah Guillen PROCEDURE IN DETAIL: After obtaining an informed consent, the patient was placed on left lateral decubitus position. He was then sedated with the above medications. A rectal examination was performed that was normal. The colonoscope was then passed through the anus into the rectosigmoid and through the descending, transverse, and ascending colon up to the cecum with visualization of the appendiceal orifice, base of the cecum and the ileocecal valve. The colonoscope was then withdrawn. No masses or colitis was noted Patient had a 2 mm benign-appearing transverse colon polyp that was seen and removed by cold biopsy forceps There was a 2 mm benign-appearing descending colon polyp that was seen and removed by cold biopsy forceps He had mild sigmoid diverticular disease with sigmoid muscular hypertrophy and some tortuosity Patient had an area of ulceration in the anorectum just above the anal verge. This was suspicious for stercoral ulceration from fecal impaction. Biopsies were obtained. On retroflexion and straight on view the patient had trace to 1+ internal hemorrhoids with one pocket was slightly thrombosed. There was no active bleeding at this time and normal brown stool in the colon The patient tolerated the procedure well without difficulty. WITHDRAWAL TIME: 10 minutes QUALITY OF THE PREP: Jean Bowel Prep score: 8. COMPLICATIONS : None SPECIMENS: Transverse colon polyp Descending colon polyp Rectal ulceration biopsies DISPOSITION: Transfer back to the floor Stable PLAN: 1. Repeat colonoscopy base on biopsy result likely in 3-5 years 2. Resume GI soft diet advance as tolerated 3. Maintained on stool softeners 4. Anusol HC rectal suppositories 5. Outpatient follow up with me as needed YAKOV JIN MD Jan 02, 2025 16:04
[2025-01-02] MEDS ORDERED: HYDROmorphone HCL 2 MG/ML VL/or syr IV PRN (16:15)
--- NOTE | 2025-01-02 21:31 | DVHPN2 ---
Assessment/Plan Assessment/Plan progress note Patient is 79 years old male with a history of atrial fibrillation, hypertension, CHF was brought in by the daughter due to bloody stool. As per daughter patient was having constipation but lately patient has been having bloody stool last 2 days especially when wiping. As per daughter patient was having hard time passing stool with a thick stool coming out with the associated pain during defecation. Patient denied any fever, any acute joint pain or swelling or chest pain no shortness a breath. She lab workup revealed leukocytosis with WBC 17.6, mild hyponatremia sodium 123, hyperkalemia potassium 5.3, serum creatinine elevated 1.81, BUN 43. HGB A1c 6.0, calcium 11..1> 11.8, PTH-81.4. Negative for influenza type A and B and COVID-19. Uterine analysis revealed-leukocyte esterase 3+, WBC 257, CT abdomen revealed Stool in the rectum suggesting fecal retention. Nonobstructive bilateral intrarenal calculi. CT CS no evidence of acute disease. seen today during rounds, for EGD physical exam aox4 perrla mmm clear breath sounds s1 s2 rrr abdomen soft mildly tender no le edema labs ekg imaging reviewed assessment and plan # suspected sepsis likely due to UTI -pending urine culture -continue ceftriaxone 1 g IV daily -continue IV fluid as prescribed # hematochezia likely due to external hemorrhoids/?proctitis -hold blood thinner at this moment -patient was scheduled for sigmoidoscopy tomorrow on 01/02/2025 # acute diarrhea, following fecal retention # fecal retention -continue current management -avoid dehydration # suspected primary hyperparathyroidism -Sestamibi scan/ Nuclear Parathyroid Scanning Negative for Parathyroid adenoma. -serum calcium 11.8, PTH intact 81.4 -pending parathyroid scan -continue current management # acute cystitis with end-organ damage -urinalysis nitrite 1+, leukocyte esterase 3+, WBC 257, -continue ceftriaxone 1 g IV daily -pending urine CS # TOMASA likely due to VMN -continue IV hydration as prescribed # atrial fibrillation, rate controlled -amiodarone 200 mg p.o. daily # hypertension -metoprolol 12.5 mg p.o. b.i.d. -lisinopril 5 mg p.o. daily #HFmEF- -continue metoprolol 12.5 mg p.o. b.i.d. -continue lisinopril 5 mg p.o. daily -Jardiance 10 mg p.o. daily # hyperkalemia potassium 5.3 -resolved -continue current management, repeat BNP # hyponatremia mild, diet NPO dvt ppx on AC Plan discussed with: Patient Date of Service: Jan 02, 2025 Billing Provider: KATHLEEN MORRIS MD Common Visit Codes: [id number] INP/OBS CARE(HIGH) KATHLEEN MORRIS MD Jan 02, 2025 21:31
[2025-01-02] MEDS: HYDROCORTISONE ACET 25 MG RECTAL SUPP PR SCH (21:56)
[2025-01-03] VITALS (7 sets, daily range): BP systolic 89–125; BP diastolic 51–84; PULSE 71–86; RESP 16–20; TEMP 97.3–98.5; O2SAT 95–98
[2025-01-03 05:00] LABS: Basophils # (auto) 0 10 ^3/uL (0-0.2); Basophils % (auto) 0.4 % (0.0-2.0); Eosinophils # (auto) 0.3 10 ^3/uL (0-0.8); Eosinophils % (auto) 2.2 % (0.0-7.0); Hematocrit 42.5 % (41.0-53.0); Hemoglobin 14.4 g/dL (13.5-17.5); Lymphocytes % (auto) 16.9 % (10.0-50.0); Mean Corpuscular Hemoglobin 31.3 pg (28.0-32.0); Mean Corpuscular Hgb Conc. 33.8 g/dL (32.0-36.0); Mean Corpuscular Volume 92.5 fL (80.0-100.0); Monocytes # (auto) 0.7 10 ^3/uL (0-1.3); Monocytes % (auto) 6.4 % (0.0-12.0); Neutrophils # (auto) 8.7 10 ^3/uL (1.6-8.6); Neutrophils % (auto) 74.1 % (37.0-80.0); Nucleated Red Blood Cells % 0.1 %; Platelet Count (auto) 188 10^3/uL (140-450); White Blood Cell 11.7 10^3/uL (4.4-10.8)
[2025-01-03 05:03] LABS: Chloride 107 mmol/L (98-107); Potassium 4.3 mmol/L (3.5-5.1); Sodium 139 mmol/L (136-145)
[2025-01-03 05:04] LABS: Anion Gap 8 (5-15); Calcium 9.7 mg/dL (8.7-10.4); Carbon Dioxide 24 mmol/L (20-31)
[2025-01-03 05:09] LABS: BUN/Creatinine Ratio 19.6 (10.0-20.0); Blood Urea Nitrogen 20 mg/dL (9-23); Glucose 98 mg/dL (74-106)
[2025-01-03] MEDS: DOCUSATE SOD 100 MG CAP PO SCH (09:00)
--- NOTE | 2025-01-03 15:45 | DVHPN2 ---
Assessment/Plan Assessment/Plan progress note Patient is 79 years old male with a history of atrial fibrillation, hypertension, CHF was brought in by the daughter due to bloody stool. As per daughter patient was having constipation but lately patient has been having bloody stool last 2 days especially when wiping. As per daughter patient was having hard time passing stool with a thick stool coming out with the associated pain during defecation. Patient denied any fever, any acute joint pain or swelling or chest pain no shortness a breath. She lab workup revealed leukocytosis with WBC 17.6, mild hyponatremia sodium 123, hyperkalemia potassium 5.3, serum creatinine elevated 1.81, BUN 43. HGB A1c 6.0, calcium 11..1> 11.8, PTH-81.4. Negative for influenza type A and B and COVID-19. Uterine analysis revealed-leukocyte esterase 3+, WBC 257, CT abdomen revealed Stool in the rectum suggesting fecal retention. Nonobstructive bilateral intrarenal calculi. CT CS no evidence of acute disease. seen today during rounds, sigmoidoscopy done, bleeding hemorrhoids and constipation. PT . MRSA in urine, starting vanc physical exam aox4 perrla mmm clear breath sounds s1 s2 rrr abdomen soft mildly tender no le edema labs ekg imaging reviewed assessment and plan # MRSA cystitis vanc # hematochezia likely due to external hemorrhoids/?proctitis -hold blood thinner at this moment -patient was scheduled for sigmoidoscopy tomorrow on 01/02/2025 # acute diarrhea, following fecal retention # fecal retention -continue current management -avoid dehydration # suspected primary hyperparathyroidism -Sestamibi scan/ Nuclear Parathyroid Scanning Negative for Parathyroid adenoma. -serum calcium 11.8, PTH intact 81.4 -pending parathyroid scan -continue current management # acute cystitis with end-organ damage -urinalysis nitrite 1+, leukocyte esterase 3+, WBC 257, -continue ceftriaxone 1 g IV daily -pending urine CS # TOMASA likely due to VMN -continue IV hydration as prescribed # atrial fibrillation, rate controlled -amiodarone 200 mg p.o. daily # hypertension -metoprolol 12.5 mg p.o. b.i.d. -lisinopril 5 mg p.o. daily #HFmEF- -continue metoprolol 12.5 mg p.o. b.i.d. -continue lisinopril 5 mg p.o. daily -Jardiance 10 mg p.o. daily # hyperkalemia potassium 5.3 -resolved -continue current management, repeat BNP # hyponatremia mild, diet NPO dvt ppx on AC Plan discussed with: Patient Date of Service: Jan 03, 2025 Billing Provider: KATHLEEN MORRIS MD Common Visit Codes: [id number] INP/OBS CARE(HIGH) KATHLEEN MORRIS MD Jan 03, 2025 15:45
--- NOTE | 2025-01-03 17:18 | DVHPN2 ---
Progress Note - Dictate Date Seen: Jan 03, 2025 Medical Necessity Reason Pt with a Central, PICC or Fol: No Subjective No new complaints Patient is tolerating a soft mechanical diet Patient is moving bowels and multiple bowel movements recorded after the Mag citrate Colonoscopy yesterday showed stercoral ulceration of the anorectum but his constipation had resolved Patient is refusing lactulose and MiraLax at this time Patient had been complaining of some lower abdominal distention and a straight cathFoley catheter was placed in the OR recovery About 500 mL of urine was drained vital signs Vital Sign Date Time Temp Pulse Resp B/P (MAP) Pulse Ox O2 Delivery O2 Flow Rate FiO2 01/03/25 12:45 97.7 76 20 117/67 (84) 96 97.7 01/03/25 08:00 Nasal Cannula* 1 24 Total Intake and Output 01/02/25 01/02/25 01/03/25 15:00 23:00 07:00 Intake Total 50 ml 1000 ml 350 ml Output Total 600 ml 750 ml Balance 50 ml 400 ml -400 ml medications Current Medications Medications Dose Ordered Sig/Vanessa Route Start Time Stop Time Status Last Admin Dose Admin Sodium Chloride 1,000 ml @ 100 mls/hr Q10H IV 12/30/24 15:45 01/03/25 09:14 100 MLS/HR Ondansetron HCl 4 mg Q4HP PRN IV 12/30/24 15:45 12/30/24 23:22 4 MG Morphine Sulfate 2 mg Q4HPRN PRN IV 12/30/24 15:45 01/01/25 12:49 2 MG Nitroglycerin 0.4 mg Q5MINP PRN SL 12/30/24 15:45 Ceftriaxone Sodium 50 ml @ 100 mls/hr DAILY@09 IV 12/31/24 09:00 01/03/25 08:57 100 MLS/HR Metronidazole 100 ml @ 100 mls/hr Q8HR IV 12/30/24 22:00 01/03/25 13:56 100 MLS/HR Bisacodyl 10 mg DAILYP PRN PA 12/30/24 15:45 Amiodarone HCl 200 mg DAILY PO 12/31/24 10:00 01/03/25 08:58 200 MG Empaglifozin 10 mg DAILY PO 12/31/24 10:00 01/03/25 09:00 10 MG Lisinopril 5 mg DAILY PO 12/31/24 10:00 01/03/25 08:59 5 MG Metoprolol Tartrate 12.5 mg BID PO 12/30/24 22:00 01/03/25 08:59 12.5 MG Pantoprazole Sodium 40 mg DAILY IV 01/01/25 10:00 01/03/25 08:58 40 MG Acetaminophen 650 mg Q6HP PRN PO 12/31/24 22:15 12/31/24 22:37 650 MG Duloxetine HCl 30 mg BID PO 01/01/25 22:00 01/03/25 08:59 30 MG Polyethylene Glycol 17 gm DAILY PO 01/02/25 10:00 Hydrocortisone Acetate 25 mg Q12HR PA 01/02/25 22:00 01/02/25 21:56 25 MG Docusate Sodium 100 mg DAILY PO 01/03/25 10:00 01/03/25 09:00 100 MG objective General: NAD, AAOX3; depressed affect Chest: lung melendez clear to auscultation Heart: RRR, no murmur Abdomen: non-distended, no tenderness to palpation, +BS Ext no c/c/e Neuro non focal laboratory and microbiology Laboratory Tests 01/03/25 04:35 Test 01/03/25 04:35 Range/Units Serum Glucose 98 74-106 mg/dL Problems(with codes): (1) Atrial fibrillation with rapid ventricular response (2) CHF (congestive heart failure) (3) Abdominal pain (4) Fecal impaction Prognosis Plan Advance diet as tolerated Maintained on stool softeners I started him on Anusol suppositories Patient stated he got depressed at home and did not care for himself anymore 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 Pt not to go >5 days CL/NPO diet only -> Currently Day 3 2. Recommend timely diet advancement to Cardiac diet as tolerated 3. Once appropriate for diet, add ONS to enhance pt's nutritional status 4. Will gather more detailed nutrition info. on FU Expected Outcomes/Goals: Improved nutritional status, diet advancement. Plan discussed with: Patient YAKOV TAYLOR MD Jan 03, 2025 17:18
[2025-01-03] MEDS ORDERED: VANCOMYCIN PER PHARMACY 0 MG IV SCH (19:15)
[2025-01-03] MEDS: VANCOMYCIN 1GM/200ML PM 200 ML IV ONE (22:55)
[2025-01-03] MEDS: TAMSULOSIN HYDROCHLORIDE 0.4 MG CAP PO ONE (23:06)
[2025-01-04] VITALS (9 sets, daily range): BP systolic 90–137; BP diastolic 50–86; PULSE 74–108; RESP 14–20; TEMP 97.4–98.1; O2SAT 95–97
[2025-01-04 07:31] LABS: Basophils # (auto) 0.1 10 ^3/uL (0-0.2); Basophils % (auto) 0.6 % (0.0-2.0); Eosinophils # (auto) 0.3 10 ^3/uL (0-0.8); Eosinophils % (auto) 3.4 % (0.0-7.0); Hematocrit 38.1 % (41.0-53.0); Hemoglobin 13.2 g/dL (13.5-17.5); Lymphocytes # (auto) 1.6 10 ^3/uL (0.4-5.4); Lymphocytes % (auto) 19.5 % (10.0-50.0); Mean Corpuscular Hgb Conc. 34.7 g/dL (32.0-36.0); Mean Corpuscular Volume 92.3 fL (80.0-100.0); Monocytes # (auto) 0.6 10 ^3/uL (0-1.3); Monocytes % (auto) 7.3 % (0.0-12.0); Neutrophils # (auto) 5.6 10 ^3/uL (1.6-8.6); Neutrophils % (auto) 69.2 % (37.0-80.0); Nucleated Red Blood Cells % 0.1 %; Platelet Count (auto) 165 10^3/uL (140-450); Red Blood Cells 4.13 10^6/uL (4.5-5.90); Red Cell Distribution Width 13.9 % (11.8-14.3); White Blood Cell 8.1 10^3/uL (4.4-10.8)
[2025-01-04 07:48] LABS: Anion Gap 8 (5-15); Carbon Dioxide 23 mmol/L (20-31); Chloride 106 mmol/L (98-107); Potassium 4.1 mmol/L (3.5-5.1); Sodium 137 mmol/L (136-145)
[2025-01-04 07:50] LABS: Calcium 9.3 mg/dL (8.7-10.4)
[2025-01-04 07:54] LABS: BUN/Creatinine Ratio 21.5 (10.0-20.0); Blood Urea Nitrogen 17 mg/dL (9-23); Glucose 83 mg/dL (74-106)
[2025-01-04] MEDS ORDERED: PANT40TA2 PO ×2 (09:55→14:13)
[2025-01-04] MEDS ORDERED: BACDST PO ×2 (09:55→14:13)
[2025-01-04] MEDS ORDERED: SENN-105 PO ×2 (09:55→14:13)
[2025-01-04] MEDS ORDERED: POLY335015 PO ×2 (09:55→14:13)
[2025-01-04] MEDS ORDERED: HYDR25SU21 PR ×2 (09:56→14:13)
[2025-01-04] MEDS: VANCOMYCIN 750MG KIT 100 ML IV SCH (11:15)
[2025-01-04] MEDS ORDERED: KETAMINE 50mg/ML 1ml syringe IV ONE (13:55)
--- NOTE | 2025-01-04 14:50 | DVHDS2 ---
Discharge Summary Date of Admission Dec 30, 2024 at 15:36 Date of Discharge: Jan 04, 2025 Labs/Diagnostic Data: Laboratory Results Test 01/04/25 05:49 01/01/25 11:00 01/01/25 06:05 12/31/24 20:58 White Blood Count 8.1 10^3/uL (4.4-10.8) Red Blood Count 4.13 10^6/uL (4.5-5.90) Hemoglobin 13.2 g/dL (13.5-17.5) Hematocrit 38.1 % (41.0-53.0) Mean Corpuscular Volume 92.3 fL (80.0-100.0) Mean Corpuscular Hemoglobin 32.0 pg (28.0-32.0) Mean Corpuscular Hemoglobin Concent 34.7 g/dL (32.0-36.0) Red Cell Distribution Width 13.9 % (11.8-14.3) Platelet Count 165 10^3/uL (140-450) Mean Platelet Volume 9.3 fL (6.9-10.8) Neutrophils (%) (Auto) 69.2 % (37.0-80.0) Lymphocytes (%) (Auto) 19.5 % (10.0-50.0) Monocytes (%) (Auto) 7.3 % (0.0-12.0) Eosinophils (%) (Auto) 3.4 % (0.0-7.0) Basophils (%) (Auto) 0.6 % (0.0-2.0) Neutrophils # (Auto) 5.6 10 ^3/uL (1.6-8.6) Lymphocytes # (Auto) 1.6 10 ^3/uL (0.4-5.4) Monocytes # (Auto) 0.6 10 ^3/uL (0-1.3) Eosinophils # (Auto) 0.3 10 ^3/uL (0-0.8) Basophils # (Auto) 0.1 10 ^3/uL (0-0.2) Nucleated Red Blood Cells 0.1 % Sodium Level 137 mmol/L (136-145) Potassium Level 4.1 mmol/L (3.5-5.1) Chloride Level 106 mmol/L (98-107) Carbon Dioxide Level 23 mmol/L (20-31) Anion Gap 8 (5-15) Blood Urea Nitrogen 17 mg/dL (9-23) Creatinine 0.79 mg/dL (0.700-1.30) Glomerular Filtration Rate Calc 90 mL/min (>90) BUN/Creatinine Ratio 21.5 (10.0-20.0) Serum Glucose 83 mg/dL (74-106) Calcium Level 9.3 mg/dL (8.7-10.4) Stool Occult Blood Negative (Negative) Stool Occult Blood Sample #3 (Negative) Phosphorus Level 2.1 mg/dL (2.4-5.1) Magnesium Level 2.0 mg/dL (1.6-2.6) Total Bilirubin 1.1 mg/dL (0.2-1.0) Aspartate Amino Transferase (AST) 23 U/L (13-40) Alanine Aminotransferase (ALT) 13 U/L (7-40) Alkaline Phosphatase 64 U/L (46-116) B-Type Natriuretic Peptide 135.22 pg/mL (0-100) Total Protein 6.2 g/dL (5.7-8.2) Albumin 3.5 g/dL (3.2-4.8) Urine Opiates Screen Neg (NEGATIVE) Urine Fentanyl Screen Neg (NEGATIVE) Urine Barbiturates Screen Neg (NEGATIVE) Urine Phencyclidine Screen Neg (NEGATIVE) Urine Amphetamines Screen Neg (NEGATIVE) Urine Benzodiazepines Screen Neg (NEGATIVE) Urine Cocaine Screen Neg (NEGATIVE) Urine Cannabinoids Screen Neg (NEGATIVE) Test 12/31/24 10:20 12/31/24 05:01 12/30/24 21:32 12/30/24 19:18 Influenza Type A Antigen Negative (Negative) Influenza Type B Antigen Negative (Negative) SARS-CoV-2 Antigen (Rapid) Negative (NEGATIVE) Hemoglobin A1c 6.0 % A1C (<5.7) Thyroid Stimulating Hormone (TSH) 2.31 uIU/mL (0.55-4.78) Parathyroid Hormone (Intact) 81.4 pg/mL (18.4-80.1) Blood Gas Specimen Type Arterial Blood Gas Sample Site Right radial Blood Gas Patient Temperature 37.0 Arterial Blood Date Drawn [id number] Arterial Blood pH 7.540 (7.350-7.450) Arterial Blood Partial Pressure CO2 24.4 mmHg (35.0-48.0) Arterial Blood Partial Pressure O2 120.6 mmHg (83.0-108.0) Arterial Blood HCO3 20.4 mmol/L (21.0-28.0) Arterial Blood Oxygen Saturation 98.7 % (94.0-98.0) Arterial Blood Base Excess -0.1 mmol/L (-2.0-3.0) Arterial Blood Oxyhemoglobin 97.5 % (94.0-98.0) Arterial Blood Carboxyhemoglobin 0.6 % (0.5-1.5) Arterial Blood Methemoglobin 0.6 % (0.0-1.5) Abner Test Modified Blood Gas Total Hemoglobin 15.80 g/dL (13.5-17.5) Blood Gas Liter Flow 1.00 Blood Gas Modality Nasal cannula FiO2 % 24.0 Urine Color Yellow (Yellow) Urine Clarity Turbid (Clear) Urine pH 6.5 (5.0-9.0) Urine Specific [place] 1.018 (1.001-1.035) Urine Protein 1+ (Negative) Urine Ketones Negative (Negative) Urine Blood 2+ /uL (Negative) Urine Nitrite 1+ (Negative) Urine Bilirubin Negative (Negative) Urine Urobilinogen Normal mg/dL (Negative) Urine Leukocyte Esterase 3+ /uL (Negative) Urine RBC 22 /hpf (0 - 3) Urine WBC Clumps Present /hpf (None Seen) Urine Microscopic WBC 257 /HPF (0-3) Urine Squamous Epithelial Cells None seen /hpf (<5) Urine Bacteria None seen /hpf (None Seen) Urine Creatinine 133.11 mg/dL (30.0-125.0) Urine Sodium 29 mmol/L (40-220) Urine Glucose 4+ mg/dL (Normal) Test 12/30/24 09:36 Prothrombin Time 11.2 sec (9.3-11.8) Prothrombin Time INR 1.06 (0.9-1.15) Activated Partial Thromboplast Time 30.4 SEC (24.5-34.5) Other Laboratory Tests 01/04/25 05:49 Brief Hx & Hospital Course: Patient is 79 years old male with a history of atrial fibrillation, hypertension, CHF was brought in by the daughter due to bloody stool. As per daughter patient was having constipation but lately patient has been having bloody stool last 2 days especially when wiping. As per daughter patient was having hard time passing stool with a thick stool coming out with the associated pain during defecation. Patient denied any fever, any acute joint pain or swelling or chest pain no shortness a breath. She lab workup revealed leukocytosis with WBC 17.6, mild hyponatremia sodium 123, hyperkalemia potassium 5.3, serum creatinine elevated 1.81, BUN 43. HGB A1c 6.0, calcium 11..1> 11.8, PTH-81.4. Negative for influenza type A and B and COVID-19. Uterine analysis revealed-leukocyte esterase 3+, WBC 257, CT abdomen revealed Stool in the rectum suggesting fecal retention. Nonobstructive bilateral intrarenal calculi. CT CS no evidence of acute disease. sigmoidoscopy done, bleeding hemorrhoids and constipation. PT . MRSA in urine, starting vanc, dc with bactrim. meds sent to bedside. Condition at Discharge: Good Final Diagnosis/Problems List fecal impaction MRSA cystitis stercolar ulceration hemorrhoids Discharge Disposition: Home Discharge Instruct/Medications Diet: Consistent carbohydrate, Cardiac 2g Na,low cholest Activity: No Restrictions, As Tolerated Discharge Statement: "Patient was advised to return to the ER or call 911 if any headaches, dizziness, shortness of breath, chest pain, abdominal pain, bleeding, fevers, or worsening of medical condition. Patient was counseled about treatment plan, medications, possible side effects, patientverbalized understanding. All questions were answered to the best of my ability. This discharge took greater then 30 minutes in planning, reviewing documentation, counseling the patient, and discussing with other team members." ASSESSMENT ASSESSMENT Assessment # MRSA cystitis # hematochezia likely due to external hemorrhoids/?proctitis # acute diarrhea, following fecal retention # fecal retention # suspected primary hyperparathyroidism # acute cystitis with end-organ damage # TOMASA likely due to VMN # atrial fibrillation, rate controlled # hypertension #HFmEF- # hyperkalemia potassium 5.3 # hyponatremia mild, Date of Service: Jan 04, 2025 Billing Provider: KATHLEEN MORRIS MD Common Visit Codes: [id number] DISCH DAY >30min KATHLEEN MORRIS MD Jan 04, 2025 14:50
[2025-01-04] MEDS: TAMSULOSIN HYDROCHLORIDE 0.4 MG CAP PO SCH (17:04)
--- NOTE | 2025-01-04 21:52 | DVHPN2 ---
Progress Note - Dictate Date Seen: Jan 04, 2025 Medical Necessity Reason Pt with a Central, PICC or Fol: No Subjective No new complaints Patient is tolerating a soft mechanical diet Colonoscopy findings discussed with patient Patient does not want excessive laxatives as he does not want to developed diarrhea Patient had been complaining of some lower abdominal distention and a straight cathFoley catheter was placed in the OR recovery About 500 mL of urine was drained vital signs Vital Sign Date Time Temp Pulse Resp B/P (MAP) Pulse Ox O2 Delivery O2 Flow Rate FiO2 01/04/25 21:14 90 126/76 01/04/25 20:00 Nasal Cannula* 1 24 01/04/25 17:00 97.5 16 96 97.5 Total Intake and Output 01/03/25 01/03/25 01/04/25 15:00 23:00 07:00 Intake Total 150 ml 640 ml 450 ml Output Total 1250 ml 1200 ml Balance 150 ml -610 ml -750 ml medications Current Medications Medications Dose Ordered Sig/Vanessa Route Start Time Stop Time Status Last Admin Dose Admin Sodium Chloride 1,000 ml @ 100 mls/hr Q10H IV 12/30/24 15:45 01/04/25 16:12 100 MLS/HR Ondansetron HCl 4 mg Q4HP PRN IV 12/30/24 15:45 12/30/24 23:22 4 MG Morphine Sulfate 2 mg Q4HPRN PRN IV 12/30/24 15:45 01/01/25 12:49 2 MG Bisacodyl 10 mg DAILYP PRN CO 12/30/24 15:45 Amiodarone HCl 200 mg DAILY PO 12/31/24 10:00 01/04/25 10:08 200 MG Empaglifozin 10 mg DAILY PO 12/31/24 10:00 01/04/25 10:09 10 MG Lisinopril 5 mg DAILY PO 12/31/24 10:00 01/04/25 10:09 5 MG Metoprolol Tartrate 12.5 mg BID PO 12/30/24 22:00 01/04/25 21:14 12.5 MG Pantoprazole Sodium 40 mg DAILY IV 01/01/25 10:00 01/04/25 10:09 40 MG Acetaminophen 650 mg Q6HP PRN PO 12/31/24 22:15 12/31/24 22:37 650 MG Duloxetine HCl 30 mg BID PO 01/01/25 22:00 01/04/25 21:14 30 MG Polyethylene Glycol 17 gm DAILY PO 01/02/25 10:00 01/04/25 10:09 17 GM Hydrocortisone Acetate 25 mg Q12HR CO 01/02/25 22:00 01/04/25 21:14 25 MG Tamsulosin HCl 0.4 mg QPM PO 01/04/25 18:00 01/04/25 17:04 0.4 MG Vancomycin HCl 0 ml @ 0 mls/hr UD IV 01/03/25 19:15 Vancomycin HCl 100 ml @ 100 mls/hr Q12H IV 01/04/25 11:00 01/04/25 11:15 100 MLS/HR objective General: NAD, AAOX3; depressed affect Chest: lung melendez clear to auscultation Heart: RRR, no murmur Abdomen: non-distended, no tenderness to palpation, +BS Ext no c/c/e Neuro non focal laboratory and microbiology Laboratory Tests 01/04/25 05:49 Test 01/04/25 05:49 Range/Units Serum Glucose 83 74-106 mg/dL Problems(with codes): (1) Stercoral ulcer of rectum (2) Atrial fibrillation with rapid ventricular response (3) Abdominal pain (4) CHF (congestive heart failure) (5) Fecal impaction Prognosis Plan Advance diet as tolerated Maintain an on stool softeners Titrate laxatives as needed Discharge planning is in progress Dietary Evaluation Review Comments: 1. Pt not to go >5 days CL/NPO diet only -> Currently Day 3 2. Recommend timely diet advancement to Cardiac diet as tolerated 3. Once appropriate for diet, add ONS to enhance pt's nutritional status 4. Will gather more detailed nutrition info. on FU Expected Outcomes/Goals: Improved nutritional status, diet advancement. Plan discussed with: Patient YAKOV TAYLOR MD Jan 04, 2025 21:52
[2025-01-05 05:00] VITALS: BP 140/82; PULSE 81; RESP 17; TEMP 99; O2SAT 98
[2025-01-05 05:42] LABS: Basophils # (auto) 0.1 10 ^3/uL (0-0.2); Basophils % (auto) 0.7 % (0.0-2.0); Eosinophils # (auto) 0.2 10 ^3/uL (0-0.8); Eosinophils % (auto) 2.5 % (0.0-7.0); Hematocrit 39.9 % (41.0-53.0); Lymphocytes # (auto) 1.6 10 ^3/uL (0.4-5.4); Lymphocytes % (auto) 18.6 % (10.0-50.0); Mean Corpuscular Hemoglobin 31.9 pg (28.0-32.0); Mean Corpuscular Hgb Conc. 35.1 g/dL (32.0-36.0); Monocytes # (auto) 0.6 10 ^3/uL (0-1.3); Monocytes % (auto) 7.2 % (0.0-12.0); Neutrophils # (auto) 6.3 10 ^3/uL (1.6-8.6); Platelet Count (auto) 161 10^3/uL (140-450); Red Blood Cells 4.38 10^6/uL (4.5-5.90); Red Cell Distribution Width 13.7 % (11.8-14.3); White Blood Cell 8.8 10^3/uL (4.4-10.8)
[2025-01-05 08:00] VITALS: PULSE 91
[2025-01-05 09:00] VITALS: BP 144/81; PULSE 91; RESP 19; TEMP 98.8; O2SAT 95
[2025-01-05] MEDS: HYDROmorphone HCL 2 MG/ML VL/or syr IV ONE (10:24)
[2025-01-05 13:00] VITALS: BP 127/87; PULSE 89; RESP 18; TEMP 98.8; O2SAT 94
--- NOTE | 2025-01-05 15:50 | DVHPNRES ---
Progress Note Date Seen: Jan 05, 2025 Resident Creating Document: JESSICA WARD RESIDENT Medical Necessity Reason Pt with a Central, PICC or Fol: No Subjective Review of Systems HPI- Patient is 79 years old male with a history of atrial fibrillation, hypertension, CHF was brought in by the daughter due to bloody stool. As per daughter patient was having constipation but lately patient has been having bloody stool last 2 days especially when wiping. As per daughter patient was having hard time passing stool with a thick stool coming out with the associated pain during defecation. Patient denied any fever, any acute joint pain or swelling or chest pain no shortness a breath. She lab workup revealed leukocytosis with WBC 17.6, mild hyponatremia sodium 123, hyperkalemia potassium 5.3, serum creatinine elevated 1.81, BUN 43. HGB A1c 6.0, calcium 11..1> 11.8, PTH-81.4. Negative for influenza type A and B and COVID-19. Uterine analysis revealed-leukocyte esterase 3+, WBC 257, CT abdomen revealed Stool in the rectum suggesting fecal retention. Nonobstructive bilateral intrarenal calculi. CT CS no evidence of acute disease. Patient had colonoscopy on 01/02/2025 which revealed stercoral ulcer. Patient had a 2 mm benign-appearing transverse colon polyp, 2 mm benign-appearing descending colon polyp that was seen and removed by cold biopsy forceps. He had mild sigmoid diverticular disease with sigmoid muscular hypertrophy and some tortuosity . Patient had an area of ulceration in the anorectum just above the anal verge. This was suspicious for stercoral ulceration from fecal impaction. Biopsies were obtained. PMH-atrial fibrillation, hypertension, CHF, EF 40% PSH- none Allergy- NKDA Personal History/ Social History- lives with daughter, smoker Patient was seen today at the bedside. Cardiovascular- deny acute chest pain or shortness of breath or cough or palpitation Respiratory denies cough or short of breath or wheezing Gastrointestinal- denies nausea or vomiting Musculoskeletal-denies acute joint swelling or tenderness or redness Neurological- denies acute dysarthria, dysphagia, change in vision Psychiatry- denies depression or SI or HI Skin- denies acute rash or purpura Patient was seen today for clinical evaluation. Labs and chart reviewed. Patient reported much better today. Patient stayed overnight as he could not get his meds at bedside. No acute chest pain no shortness a breath. Objective vital signs Vital Sign Date Time Temp Pulse Resp B/P (MAP) Pulse Ox O2 Delivery O2 Flow Rate FiO2 01/05/25 13:00 98.8 89 18 127/87 (100) 94 98.8 01/04/25 20:00 Nasal Cannula* 1 24 Total Intake and Output 01/04/25 01/04/25 01/05/25 15:00 23:00 07:00 Intake Total 100 ml 1870 ml 1700 ml Output Total 450 ml 1800 ml Balance 100 ml 1420 ml -100 ml medications Current Medications Medications Dose Ordered Sig/Vanessa Route Start Time Stop Time Status Last Admin Dose Admin Sodium Chloride 1,000 ml @ 100 mls/hr Q10H IV 12/30/24 15:45 01/05/25 01:45 100 MLS/HR Ondansetron HCl 4 mg Q4HP PRN IV 12/30/24 15:45 12/30/24 23:22 4 MG Morphine Sulfate 2 mg Q4HPRN PRN IV 12/30/24 15:45 01/01/25 12:49 2 MG Bisacodyl 10 mg DAILYP PRN PA 12/30/24 15:45 Amiodarone HCl 200 mg DAILY PO 12/31/24 10:00 01/05/25 10:29 200 MG Empaglifozin 10 mg DAILY PO 12/31/24 10:00 01/05/25 10:29 10 MG Lisinopril 5 mg DAILY PO 12/31/24 10:00 01/05/25 10:30 5 MG Metoprolol Tartrate 12.5 mg BID PO 12/30/24 22:00 01/05/25 10:31 12.5 MG Pantoprazole Sodium 40 mg DAILY IV 01/01/25 10:00 01/05/25 10:28 40 MG Acetaminophen 650 mg Q6HP PRN PO 12/31/24 22:15 12/31/24 22:37 650 MG Duloxetine HCl 30 mg BID PO 01/01/25 22:00 01/05/25 10:29 30 MG Polyethylene Glycol 17 gm DAILY PO 01/02/25 10:00 01/05/25 10:32 17 GM Hydrocortisone Acetate 25 mg Q12HR PA 01/02/25 22:00 01/05/25 10:33 25 MG Tamsulosin HCl 0.4 mg QPM PO 01/04/25 18:00 01/04/25 17:04 0.4 MG Vancomycin HCl 0 ml @ 0 mls/hr UD IV 01/03/25 19:15 Vancomycin HCl 100 ml @ 100 mls/hr Q12H IV 01/04/25 11:00 01/05/25 10:33 100 MLS/HR Examination General examination-, awake, conversant HEENT- PEERLA, no acute nasal discharge Cardiovascular- S1-S2 audible, rate and rhythm regular, no murmur Respiratory- CTAB, no wheeze or rhonchi Gastrointestinal-nontender, bowel sound+. Nondistended Musculoskeletal-no acute joint swelling or tenderness or redness Lower extremity- no leg edema Neurological- cranial nerves intact, no acute dysarthria or dysphagia Psychiatry- denies depression or SI or HI Skin- no acute rash or purpura laboratory and microbiology Laboratory Tests 01/05/25 04:56 01/04/25 05:49 Test 01/04/25 05:49 Range/Units Serum Glucose 83 74-106 mg/dL Microbiology Date/Time Source Procedure Growth Status 01/01/25 09:40 Stool Stool Culture - Final Complete 01/01/25 09:40 Stool Shiga Toxin I & II - Final Complete 12/31/24 20:58 Voided Urine Urine Culture - Final Methicillin Resistant S.aureus Complete Problem List/Assessment/Plan Problem List/Assessment/Plan Assessment and plan-patient's constipation with fecal impaction has improved with the treatment, patient had bowel movement. Patient was scheduled for sigmoidoscopy tomorrow on 01/02/2025. Patient on ceftriaxone IV for UTI. Patient can be discharged tomorrow after colonoscopy if hemodynamically stable.S estamibi scan/ Nuclear Parathyroid Scanning Negative for Parathyroid adenoma. # sepsis likely due to UTI -urine culture revealed MRSA -continue current medication -avoid dehydration # hematochezia likely due to hemorrhoids, resolved -avoid constipation # stercoral ulcer -continue current management -avoid constipation # acute diarrhea, following fecal retention # fecal retention -continue current management -avoid dehydration # suspected primary hyperparathyroidism -Sestamibi scan/ Nuclear Parathyroid Scanning Negative for Parathyroid adenoma. -serum calcium 11.8, PTH intact 81.4 -pending parathyroid scan -continue current management # acute cystitis with end-organ damage -urinalysis nitrite 1+, leukocyte esterase 3+, WBC 257, -continue ceftriaxone 1 g IV daily -pending urine CS # TOMASA likely due to VMN -continue IV hydration as prescribed # atrial fibrillation, rate controlled -amiodarone 200 mg p.o. daily # hypertension -metoprolol 12.5 mg p.o. b.i.d. -lisinopril 5 mg p.o. daily #HFmEF- -continue metoprolol 12.5 mg p.o. b.i.d. -continue lisinopril 5 mg p.o. daily -Jardiance 10 mg p.o. daily # hyperkalemia potassium 5.3 -resolved -continue current management, # hyponatremia mild, -continue IV fluid as prescribed Goals of care, Code status ; discussed with >15 minutes PUD prophylaxis: Pantoprazole DVT prophylaxis: Blood thinner on hold due to per rectal bleeding Plan discussed with Dr. Sanon , nursing staff, Total time spent on patient evaluation, chart review, assessment and plan, discussion discussion >35 minutes Plan discussed with: Patient (RN), Other Dietary Evaluation Review Comments: 1. Pt not to go >5 days CL/NPO diet only -> Currently Day 3 2. Recommend timely diet advancement to Cardiac diet as tolerated 3. Once appropriate for diet, add ONS to enhance pt's nutritional status 4. Will gather more detailed nutrition info. on FU Expected Outcomes/Goals: Improved nutritional status, diet advancement. JESSICA WARD RESIDENT Jan 05, 2025 15:50
[2025-01-05 17:00] VITALS: BP 145/84; PULSE 96; RESP 17; TEMP 97.8; O2SAT 94
--- NOTE | 2025-01-05 23:11 | DVHPN2 ---
Progress Note - Dictate Date Seen: Jan 05, 2025 (Time of visit 1 pm) Medical Necessity Reason Pt with a Central, PICC or Fol: No Subjective No new complaints Patient is tolerating a soft mechanical diet Colonoscopy findings discussed with patient Patient does not want excessive laxatives as he does not want to developed diarrhea Patient had been complaining of some lower abdominal distention and a straight cathFoley catheter was placed in the OR recovery About 500 mL of urine was drained vital signs Vital Sign Date Time Temp Pulse Resp B/P (MAP) Pulse Ox O2 Delivery O2 Flow Rate FiO2 01/05/25 17:00 97.8 96 17 145/84 (104) 94 97.8 01/05/25 08:00 Room Air* 0 21 Total Intake and Output 01/04/25 01/04/25 01/05/25 15:00 23:00 07:00 Intake Total 100 ml 1870 ml 1700 ml Output Total 450 ml 1800 ml Balance 100 ml 1420 ml -100 ml objective General: NAD, AAOX3; depressed affect Chest: lung melendez clear to auscultation Heart: RRR, no murmur Abdomen: non-distended, no tenderness to palpation, +BS Ext no c/c/e Neuro non focal laboratory and microbiology Laboratory Tests 01/05/25 04:56 01/04/25 05:49 Test 01/04/25 05:49 Range/Units Serum Glucose 83 74-106 mg/dL Problems(with codes): (1) Stercoral ulcer of rectum (2) Atrial fibrillation with rapid ventricular response (3) Abdominal pain (4) CHF (congestive heart failure) (5) Fecal impaction Prognosis Plan Advance diet as tolerated Maintain an on stool softeners Anusol HC rectal suppositories Titrate laxatives as needed Discharge planning is in progress Dietary Evaluation Review Comments: 1. Pt not to go >5 days CL/NPO diet only -> Currently Day 3 2. Recommend timely diet advancement to Cardiac diet as tolerated 3. Once appropriate for diet, add ONS to enhance pt's nutritional status 4. Will gather more detailed nutrition info. on FU Expected Outcomes/Goals: Improved nutritional status, diet advancement. Plan discussed with: Patient YAKOV TAYLOR MD Jan 05, 2025 23:11
== END 2025-01-05 17:10 | disposition home or self-care (01) | DRG 871 ==
LOC: EDBD 08:57 → ER 08:57 → OVERFLOW 15:36 → TELE-EAST 22:40
PROVIDERS: ADMIT Student in an Organized Health Care Education/Training Program; ATTEND Student in an Organized Health Care Education/Training Program
PROC: 0DBM8ZZ Excision of Descending Colon, Via Natural or Artificial Opening Endoscopic (ICD-10-PCS; 2025-01-02)
PROC: 0DBL8ZZ Excision of Transverse Colon, Via Natural or Artificial Opening Endoscopic (ICD-10-PCS; 2025-01-02)
PROC: 0DBP8ZX Excision of Rectum, Via Natural or Artificial Opening Endoscopic, Diagnostic (ICD-10-PCS; principal; 2025-01-02 15:20)
DX: A41.9 Sepsis, unspecified organism (principal); N17.0 Acute kidney failure with tubular necrosis; I50.20 Unspecified systolic (congestive) heart failure; E87.1 Hypo-osmolality and hyponatremia; K63.3 Ulcer of intestine; N30.00 Acute cystitis without hematuria; E87.5 Hyperkalemia; E21.0 Primary hyperparathyroidism; B95.62 Methicillin resistant Staphylococcus aureus infection as the cause of diseases classified elsewhere; K56.41 Fecal impaction; K63.5 Polyp of colon; K64.4 Residual hemorrhoidal skin tags; K64.8 Other hemorrhoids; K57.30 Diverticulosis of large intestine without perforation or abscess without bleeding; I11.0 Hypertensive heart disease with heart failure; I48.91 Unspecified atrial fibrillation; N20.0 Calculus of kidney; Z79.01 Long term (current) use of anticoagulants; Z79.84 Long term (current) use of oral hypoglycemic drugs; Z79.899 Other long term (current) drug therapy; Z87.891 Personal history of nicotine dependence
CPT/HCPCS: 36415; 36600; 71045; 74176; 78070; 80048; 80053; 80307; 81001; 82270; 82565; 82570; 82805; 83036; 83735; 83880; 83970; 84100; 84300; 84443; 85025; 85610; 85730; 87045; 87086; 87088; 87186; 87426; 87427; 87493; 87804; 96361; 96365; 96368; 97163; G0378; J2250; J2405; J2470; J2704; J3490